=== PATIENT | female | born 1945 | race Two or more races ===

== ENCOUNTER 2019-01-30 22:40 | Inpatient (IN) | payer MEDICARE, OTHER ==
[~2019-01-30] VITALS: Ht 154.9 cm; Wt 84.5 kg
--- NOTE | 2019-01-30 23:37 | NUR ---
REPORT RECEIVED FROM RIANA ROCHA AT [facility] ER. ETA [phone]
--- NOTE | 2019-01-31 01:00 | NUR ---
RECEIVED PATIENT VIA GURNEY IN STABLE CONDITION. PATIENT AWAKE, A/OX4, AUSTRALIAN SPEAKING. NO C/O PAIN OR DISCOMFORT. NOTED WITH LEFT FOOT MULTIPLE ULCERS, UNABLE TO STAGE D/T NECTROTIC TISSUE. IV LINE IN RIGHT HAND #22 GAUGE INTACT AND PATENT. RUC PERMA CATH INTACT WITH NO BLEEDING, SWELLING, OR DRAINAGE NOTED AT INSERTION SITE. HEMODIALYSIS TTHS, LAST TX ON 01/29/19. ENCOURAGED USE OF CALL LIGHT FOR ASSISTANCE. ROOM FREE OF CLUTTER AND BELONGINGS KEPT NEAR BEDSIDE. BED ALARM ON AND FUNCTIONING PROPERLY. WILL CONTINUE TO MONITOR.
[2019-01-31] MEDS ORDERED: IV NS 0.9% 1,000 ML IV PRN (01:13)
[2019-01-31] MEDS ORDERED: DEXTROSE 50%-WATER 50 ML DISP.SYRIN IV PRN ×2 (01:30→09:30)
[2019-01-31] MEDS ORDERED: ACETAMINOPHEN 325 MG TABLET PO PRN (01:30)
[2019-01-31] MEDS ORDERED: MAGNESIUM HYDROXIDE 30 ML UDC PO PRN (01:30)
[2019-01-31] MEDS ORDERED: ONDANSETRON HCL/PF 4 MG/2 ML VIAL IVP PRN (01:30)
[2019-01-31] MEDS ORDERED: MORPHINE SULFATE INJ 2 MG/ML DISP.SYRIN IV PRN (01:30)
[2019-01-31] MEDS ORDERED: ZOLPIDEM TARTRATE 5 MG TABLET PO PRN (01:30)
[2019-01-31] MEDS ORDERED: Z GUARD REMEDY 2 OZ OINT TP PRN (01:30)
[2019-01-31] MEDS ORDERED: MAG HYDROX/AL HYDROX/SIMETH 30 ML UDC PO PRN (01:30)
[2019-01-31] MEDS ORDERED: VANCOMYCIN 1 GM in IV D5W 250ml IV ONE (02:00)
[2019-01-31 06:24] LABS: BASOPHILS # (AUTO) 0.1 /CMM (0.0-0.2); BASOPHILS % (AUTO) 0.4 % (0.0-2.0); EOSINOPHILS % (AUTO) 2.1 % (0.0-6.0); HEMATOCRIT 27 % (33-45); HEMOGLOBIN 8.7 g/dL (11.5-14.8); LYMPHOCYTES # (AUTO) 2.5 /CMM (0.8-4.8); LYMPHOCYTES % (AUTO) 16.1 % (20.0-44.0); MEAN CORPUSCULAR HGB CONC 32 g/dl (31.0-36.0); MEAN CORPUSCULAR VOLUME 93 fL (82-100); MONOCYTES # (AUTO) 1.4 /CMM (0.1-1.30); NEUTROPHILS # (AUTO) 11.3 /CMM (1.8-8.9); NEUTROPHILS % (AUTO) 72.4 % (43.0-81.0); PLATELET COUNT (AUTO) 290 /CMM (150-450); WHITE BLOOD COUNT (AUTO) 15.5 K/uL (4.3-11.0)
[2019-01-31 06:34] VITALS: BP 132/77
--- NOTE | 2019-01-31 06:35 | NUR ---
MS RN NOTES PATIENT ASLEEP IN BED WITH NO DISTRESS NOTED. CALL LIGHT WITHIN REACH. LEFT FOOT DRESSING REMAINS INTACT, CLEAN, AND DRY. PERIPHERAL LINE INTACT AND PATENT. NO C/O PAIN OR DISCOMFORT. BED IN LOW LOCK SETTING. ROOM FREE OF CLUTTER AND BELONGINGS KEPT NEAR BEDSIDE. WILL ENDORSE TO ONCOMING SHIFT.
[2019-01-31] MEDS: BLOOD SUGAR DIAGNOSTIC 1 EACH STRIP IN SCH ×4 (06:40→21:20)
[2019-01-31 06:52] LABS: CHOLESTEROL 68 mg/dL (<200); HDL CHOLESTEROL 33 mg/dL (40-60); LDL 25 mg/dL (0-99); THYROID STIMULATING HORMONE 1.601 uIU/mL (0.358-3.74); TRIGLYCERIDES 70 mg/dL (30-150)
[2019-01-31] MEDS ORDERED: FEE PK DOSING 1 MIN EA MC ONE (06:59)
[2019-01-31 07:02] LABS: ALANINE AMINOTRANSFERASE 12 U/L (12-78); ALKALINE PHOSPHATASE 105 U/L (46-116); ASPARTATE AMINOTRANSFERASE 16 U/L (15-37); BILIRUBIN,TOTAL 0.3 mg/dL (0.2-1.0); CALCIUM, SERUM 8.7 mg/dL (8.5-10.1); CARBON DIOXIDE 28 mmol/L (21-32); CHLORIDE 99 mmol/L (98-107); CREATININE 4.9 mg/dL (0.6-1.3); GLUCOSE 76 mg/dL (74-106); MAGNESIUM 1.8 mg/dL (1.8-2.4); PHOSPHORUS 4.3 mg/dL (2.5-4.9); POTASSIUM 4.3 mmol/L (3.5-5.1); SODIUM SERUM 135 mmol/L (136-145); TOTAL PROTEIN, SERUM 6.7 g/dL (6.4-8.2); UREA NITROGEN, BLOOD 30 mg/dL (7-18)
--- NOTE | 2019-01-31 07:02 | NUR ---
0200 X1 VANCO DOSE HELD D/T INITIAL DOSE (VANCO 1GM) GIVEN AT [facility] @ 1999. CHARGE NURSE MADE AWARE.
[2019-01-31] MEDS ORDERED: ATOR80TA PO (07:36)
[2019-01-31] MEDS ORDERED: FURO-144 PO (07:36)
[2019-01-31] MEDS ORDERED: INSU100I4 SQ (07:36)
[2019-01-31] MEDS ORDERED: OMEP20CA11 PO (07:36)
[2019-01-31] MEDS ORDERED: SPIR25TA6 PO (07:36)
[2019-01-31] MEDS ORDERED: INSU100V7 SQ (07:36)
[2019-01-31] MEDS ORDERED: ASPI-1152 PO (07:36)
[2019-01-31] MEDS ORDERED: HYDR-4075 PO (07:36)
[2019-01-31] MEDS ORDERED: CARV25TA2 PO (07:36)
[2019-01-31] MEDS ORDERED: BUME2TAB7 PO (07:36)
--- NOTE | 2019-01-31 07:36 | NUR ---
MS RN OPENING NOTE PATIENT IN BED RESTING COMFORTABLY. PATIENT IN NO ACUTE DISTRESS. NO SOB NOTED. PATIENT BREATHING IS EVEN AND UNLABORED. PATIENT IN NO PAIN AT THIS TIME. PATIENT SAFETY PRECAUTIONS IN PLACE. PATIENT BED IS LOCKED AND IN LOWEST POSITION. CALL LIGHT WITHIN REACH. WILL CONTINUE TO MONITOR.
[2019-01-31] MEDS: PANTOPRAZOLE 40 MG TABLET.DR PO SCH (07:56)
[2019-01-31 08:00] VITALS: BP 118/62
[2019-01-31] MEDS ORDERED: VANCOMYCIN 500 MG in IV D5W 100 ML IV PRN (08:30)
[2019-01-31] MEDS ORDERED: INSULIN REGULAR, HUMAN 100 UNIT/ML 3 ML VIAL SQ PRN (09:30)
[2019-01-31] MEDS ORDERED: *INSULIN REGULAR(HUMULIN R)HUM 100 UNIT/ML VIAL SQ PRN (09:30)
[2019-01-31] MEDS: BUMETANIDE (1 MG) 1 MG TABLET PO SCH ×2 (10:01→16:35)
--- NOTE | 2019-01-31 11:02 | NUR ---
MS RN NOTE DR. BENITES NOTIFIED AND INFORMED OF MRI RESULTS FROM [facility]. PODIATRY CONSULT ORDERED. DR. BENITES NOTIFIED NO PODIATRY AVAILABLE FOR WEEKEND.
[2019-01-31 11:40] LABS: APPEARANCE,URINE CLOUDY (CLEAR); BILIRUBIN,URINE NEGATIVE (NEGATIVE); BLOOD, URINE TRACE-INTA Ery/uL (NEGATIVE); COLOR,URINE DARK YELLO (YELLOW); KETONES,URINE NEGATIVE (NEGATIVE); LEUKOCYTE ESTERASE ,URINE TRACE (NEGATIVE); NITRITE, URINE NEGATIVE (NEGATIVE); PROTEIN,URINE 100 mg/dl (NEGATIVE); UGLUCOSE NEGATIVE (NEGATIVE); UROBILINOGEN,URINE 0.2 EU/dL (0.2)
[2019-01-31] MEDS ORDERED: BLOOD SUGAR DIAGNOSTIC 1 EACH STRIP VI SCH (12:00)
[2019-01-31] MEDS: INSULIN REGULAR, HUMAN 100 UNIT/ML 3 ML VIAL SQ PRN ×3 (12:11→21:22)
[2019-01-31 12:29] LABS: BACTERIA,URINE Many /HPF (None Seen); SQUAMOUS EPITHELIAL CELL,UR Moderate /HPF (None Seen)
[2019-01-31 16:12] VITALS: BP 147/73
[2019-01-31] MEDS ORDERED: INSULIN GLARGINE, 100 UNIT/ML CARTRIDGE SQ SCH (17:00)
[2019-01-31] MEDS ORDERED: CARVEDILOL 25 MG TABLET PO SCH (17:00)
--- NOTE | 2019-01-31 17:06 | NUR ---
MS RN NOTE DR. BENITES INFORMED OF 100 UNITS OF LANTUS SCHEDULED AT 1700. INFORMED DR. BENITES OF PATIENT BLOOD SUGAR THROUGHOUT DAY, WITH CURRENT BLOOD SUGAR AT 228 WITH 4 UNITS OF FAST ACTING INSULIN GIVEN. PER DR. BENITES ORDERS TO REDOSE LANTUS TO 50 UNITS. WILL FOLLOW UP WITH DOSE ORDER. WILL CONTINUE TO MONITOR
[2019-01-31] MEDS: INSULIN GLARGINE, 100 UNIT/ML CARTRIDGE SQ SCH (18:07)
--- NOTE | 2019-01-31 18:51 | NUR ---
MS RN CLOSING NOTE PATIENT IN BED RESTING COMFORTABLY. PATIENT BREATHING IS EVEN AND UNLABORED. PATIENT IN NO ACUTE DISTRESS. NO SOB NOTED. NOTIFIED [employer], MARTELL RUIZ TWICE ABOUT DIALYSIS SCHEDULING. NO RESPONSE. WILL ENDORSE TO VENDING MANAGER TO FOLLOW UP. PATIENT SON AT THE BEDSIDE. PATIENT EXTREMITIES OFFLOADED ON PILLOWS. PATIENT KEPT CLEAN, DRY, AND COMFORTABLY THROUGHOUT SHIFT. NEEDS AND CONCERNS ADDRESSED. PATIENT BED IS LOCKED AND IN LOWEST CONDITION. CALL LIGHT WITHIN REACH. WILL ENDORSE CARE TO PM SHIFT FOR GONZALO.
--- NOTE | 2019-01-31 19:10 | NUR ---
MS RN OPENING NOTES RECEIVED PATIENT IN BED WATCHING TV, ALERT, ORIENTED X 4, OMANI SPEAKING. SON AT BEDSIDE. BREATHING EVEN AND UNLABORED. NOT IN ANY DISTRESS. ON ROOM AIR. NO COMPLAINTS AT THIS TIME. SAFETY MEASURES IN PLACE. CALL LIGHT WITHIN REACH. BED IN LOW, LOCKED POSITION. ENCOURAGED TO CALL FOR ASSISTANCE. WILL CONTINUE TO MONITOR ACCORDINGLY
[2019-01-31 20:00] VITALS: BP 175/75
[2019-01-31] MEDS: ATORVASTATIN 10 MG TABLET PO SCH (21:14)
[2019-01-31] MEDS: CARVEDILOL 12.5 MG TABLET PO SCH (21:15)
--- NOTE | 2019-01-31 21:22 | NUR ---
RN NOTES BSL CHECKED- 177MG/DL. 3 UNITS INSULIN COVERAGE GIVEN PER SLIDING SCALE. SNACKS PROVIDED
[2019-01-31] MEDS ORDERED: MEROPENEM 500 MG VIAL IV ONE ×2 (23:16→23:33)
[2019-01-31] MEDS: MEROPENEM 500 MG in IV NS 0.9% 50 ML IV SCH (23:21)
[2019-02-01 06:27] LABS: BASOPHILS % (AUTO) 0.3 % (0.0-2.0); CALCIUM, SERUM 8.4 mg/dL (8.5-10.1); CARBON DIOXIDE 30 mmol/L (21-32); CHLORIDE 97 mmol/L (98-107); CREATININE 5.5 mg/dL (0.6-1.3); EOSINOPHILS % (AUTO) 2.1 % (0.0-6.0); GLUCOSE 178 mg/dL (74-106); HEMATOCRIT 26 % (33-45); HEMOGLOBIN 8.8 g/dL (11.5-14.8); LYMPHOCYTES # (AUTO) 2.7 /CMM (0.8-4.8); LYMPHOCYTES % (AUTO) 17.8 % (20.0-44.0); MEAN CORPUSCULAR HGB CONC 33 g/dl (31.0-36.0); MEAN CORPUSCULAR VOLUME 92 fL (82-100); MONOCYTES # (AUTO) 1.4 /CMM (0.1-1.30); MONOCYTES % (AUTO) 9.1 % (2.0-12.0); NEUTROPHILS # (AUTO) 10.7 /CMM (1.8-8.9); NEUTROPHILS % (AUTO) 70.7 % (43.0-81.0); PLATELET COUNT (AUTO) 302 /CMM (150-450); RED BLOOD CELL COUNT(AUTO) 2.85 MIL/uL (4.0-5.2); SODIUM SERUM 134 mmol/L (136-145); UREA NITROGEN, BLOOD 40 mg/dL (7-18); WHITE BLOOD COUNT (AUTO) 15.1 K/uL (4.3-11.0)
[2019-02-01] MEDS: INSULIN REGULAR, HUMAN 100 UNIT/ML 3 ML VIAL SQ PRN ×4 (06:45→21:04)
[2019-02-01] MEDS: BLOOD SUGAR DIAGNOSTIC 1 EACH STRIP IN SCH ×4 (06:45→21:01)
--- NOTE | 2019-02-01 07:03 | NUR ---
MS RN CLOSING NOTE PATIENT IN BED RESTING COMFORTABLY. PATIENT BREATHING IS EVEN AND UNLABORED. PATIENT IN NO ACUTE DISTRESS. NO SOB NOTED. BSL CHECKED- 157MG/DL- 2 UNITS INSULIN GIVEN PER SLIDING SCALE. PATIENT KEPT CLEAN, DRY, AND COMFORTABLY THROUGHOUT SHIFT. NEEDS AND CONCERNS ATTENDED. PATIENT BED IS LOCKED AND IN LOWEST CONDITION. CALL LIGHT WITHIN REACH. WILL ENDORSE CONTINUITY OF CARE TO AM SHIFT
--- NOTE | 2019-02-01 07:35 | NUR ---
MS RN OPENING NOTE PATIENT IN BED RESTING COMFORTABLY. PATIENT IN NO ACUTE DISTRESS. NO SOB NOTED. PATIENT BREATHING IS EVEN AND UNLABORED. PATIENT IN NO PAIN AT THIS TIME. BED ALARM IS ON. PATIENT SAFETY PRECAUTIONS IN PLACE. PATIENT BED IS LOCKED AND IN LOWEST POSITION. CALL LIGHT WITHIN REACH. WILL CONTINUE TO MONITOR.
[2019-02-01 08:00] VITALS: BP 153/83
[2019-02-01] MEDS: PANTOPRAZOLE 40 MG TABLET.DR PO SCH (08:46)
[2019-02-01] MEDS: INSULIN GLARGINE, 100 UNIT/ML CARTRIDGE SQ SCH ×2 (08:58→17:22)
[2019-02-01] MEDS: ASPIRIN EC 81 MG TABLET.DR PO SCH (09:00)
[2019-02-01] MEDS: BUMETANIDE (1 MG) 1 MG TABLET PO SCH ×2 (09:00→17:14)
[2019-02-01] MEDS: hydrALAZINE HCL 10 MG TABLET PO SCH (09:00)
[2019-02-01] MEDS ORDERED: OMEPRAZOLE 20 MG CAPSULE.DR PO SCH (09:00)
[2019-02-01] MEDS: SPIRONOLACTONE 25 MG TABLET PO SCH (09:01)
[2019-02-01] MEDS: CARVEDILOL 12.5 MG TABLET PO SCH ×2 (09:01→21:00)
[2019-02-01] MEDS: MEROPENEM 500 MG in IV NS 0.9% 50 ML IV SCH ×2 (10:31→21:42)
--- NOTE | 2019-02-01 11:36 | NUR ---
MS RN NOTE PER DR. MARTELL RUIZ CHANGE DIET TO RENAL DIET.
--- NOTE | 2019-02-01 11:45 | NUR ---
MS RN NOTE SEEN AND EVALUATED BY DR. MARTELL RUIZ. SPOKE WITH MD, PER MD PATIENT SCHEDULED TO HAVE HEMODIALYSIS LATE AFTERNOON TO EVENING. CONSENT SIGNED AND IN CHART.
[2019-02-01] MEDS ORDERED: EPOETIN ALFA (10,000 UNIT) 10,000 UNIT/ML VIAL SQ ONE (15:00)
[2019-02-01 16:00] VITALS: BP 161/81
--- NOTE | 2019-02-01 16:58 | NUR ---
RN NOTES ORDERS TO GET RECORDS FROM [facility] FOR MICROBIOLOGY RESULT FROM BLOOD/URINE ON 01/30. MEDICAL RECORDS CLOSED AT THIS TIME. WILL ENDORSE TO OBTAIN ONCE OFFICES ARE OPEN. Addendum: 02/01/19 at 1701 by RAJENDRA GRACE RN RN NOTES ORDERS TO GET RECORDS FROM [facility] FOR MICROBIOLOGY RESULT FROM BLOOD/URINE ON 01/30. MEDICAL RECORDS CLOSED AT THIS TIME. WILL ENDORSE TO NEXT SHIFT RN TO OBTAIN ONCE OFFICES ARE OPEN.
[2019-02-01] MEDS: LACTOBACILLUS RHAMNOSUS GG 1 EACH CAP.SPRINK PO SCH (17:14)
--- NOTE | 2019-02-01 18:22 | NUR ---
MS RN CLOSING NOTE PATIENT IN BED RESTING COMFORTABLY. PATIENT BREATHING IS EVEN AND UNLABORED. PATIENT IN NO ACUTE DISTRESS. NO SOB NOTED. PATIENT CURRENTLY RECEIVING HEMODIALYSIS AT THIS TIME. PATIENT SON AT THE BEDSIDE. PATIENT EXTREMITIES OFFLOADED ON PILLOWS. PATIENT KEPT CLEAN, DRY, AND COMFORTABLE THROUGHOUT SHIFT. NEEDS AND CONCERNS ADDRESSED. PATIENT BED IS LOCKED AND IN LOWEST CONDITION. CALL LIGHT WITHIN REACH. WILL ENDORSE CARE TO PM SHIFT FOR GONZALO.
--- NOTE | 2019-02-01 19:15 | NUR ---
RN NOTES-ASSESSMENT: RECEIVED REPORT FROM RAJENDRA MAYERS. PT IN BED, ONGOING HD STARTED AT 1720PM. PT IS A/O X3 BENGALI SPEAKING ONLY, ON RA RESPIRATIONS EVEN AND UNLABORED. RCW PERMACATH IN PLACED, DRESSING C/D/I. HD RN AT BED SIDE. RANDOM VANCO DRAWN, RESULT IS 16. BED SIDE COMMODE AVAILABLE. PT NEEDS ASSISTANCE IN AMBULATING D/T PRESENCE OF WOUND ON LLE. DRESSING ON FOOT C/D/I. NO ACTIVE BLEEDING NOTED. BLE OFFLOADED ON PILLOWS. DISCUSSED PLAN OF CARE TO PT. SAFETY PRECAUTIONS FOR FALL INITIATED, CALL LIGHT IN REACH, WILL CONTINUE MONITORING PT.
[2019-02-01 20:00] VITALS: BP 129/62
[2019-02-01] MEDS ORDERED: VANCOMYCIN 0.75 GM in IV D5W 250 ML IV SCH (20:00)
[2019-02-01 20:10] VITALS: BP 129/62
--- NOTE | 2019-02-01 20:42 | NUR ---
RN NOTES: COMPLETED HD-HD RN KORY, 2000 ML WAS REMOVED. DOUBLE CHECK RANDOM VANCO LEVEL, FOUND OUT THAT RANDOM VANCO WAS NOT COLLECTED TODAY, VANCO TROUGH WAS DONE YESTERDAY DATED 01/31/19 RESULT IS 16, BUT NO RANDOM LEVEL FOR TODAY. SPOKED WITH KORY STATED SHE DID ASK THE DAY [facility] ABOUT IT, BUT STATED ITS NOT NEEDED. CONTACTED PHARMACIST CHAINSTITCH HEMMER-SPOKED WITH BEATRIZ, RELAYED SITUATION, PER BEATRIZ TO DO RANDOM VANCO LEVEL NOW, THEN IF RESULT IS BELOW 20, THEN GIVE THE VANCOMYCIN 500MG IV ATB.
--- NOTE | 2019-02-01 20:48 | NUR ---
RN NOTES: LAB ON HIS WAY TO DRAW RANDOM ANKIT
[2019-02-01 20:53] VITALS: BP 112/44
[2019-02-01] MEDS: ATORVASTATIN 10 MG TABLET PO SCH (21:01)
--- NOTE | 2019-02-01 21:09 | NUR ---
rn notes: lab came to draw blood for vanco random level
--- NOTE | 2019-02-01 21:25 | NUR ---
rn notes: still awaiting for result of vanco random level
--- NOTE | 2019-02-01 22:31 | NUR ---
RN NOTES-VANCOMYCIN POST HD: VANCO RANDOM LEVEL RESULT IS 10. PER CIVIL ENGINEERING PROFESSOR PHARM NAGI TO ADMINISTER VANCO POST HD. (JUST COMPLETED/FINISHED IV MERREM0
--- NOTE | 2019-02-02 04:09 | NUR ---
MS RN NOTES RECEIVED PATIENT IN BED RESTING ALERT, ORIENTED X4. GREEK SPEAKING. BREATHING EVEN AND UNLABORED, DENIES ANY PAIN OR DISCOMFORT. SAFETY MEASURES IN PLACE, ASPIRATION PRECAUTION EMPHASIZED, PERIPHERAL IV INTACT PATIENT. BED IN LOW LOCKED POSITION. CALL LIGHT WITHIN REACH. SON AT BEDSIDE AT THIS TIME. WILL CONTINUE TO MONITOR ACCORDINGLY.
[2019-02-02] MEDS: BLOOD SUGAR DIAGNOSTIC 1 EACH STRIP IN SCH ×4 (06:39→22:06)
[2019-02-02] MEDS: INSULIN REGULAR, HUMAN 100 UNIT/ML 3 ML VIAL SQ PRN ×4 (06:41→22:10)
--- NOTE | 2019-02-02 06:59 | NUR ---
END OF SHIFT SUMMARY: PT LLE REMAINS OFFLOADED ON PILLOWS. DRESSING C/D/I, NO ACTIVE BLEEDING NOTED. ORTHO SHOES (LEFT FOOT) AT BED SIDE. AWAITING FOR PODIATRY CONSULT. IV ACCESS REMAINS PATENT AND FLUSHING WELL, ON HL, FREE FROM S/S OF INFILTRATION. RUCW PERMACATH REMAINS IN PLACED, DRESSING C/D/I, NO ACTIVE BLEEDING NOTED. BLOOD GLUCOSE AT 2200 WAS 193, COVERED WITH 3UNITS OF INSULIN PER SLIDING SCALE. BLOOD GLUCOSE FOR 0630AM WAS 134, COVERED WITH 2UNIT OF INSULIN PER SS. PT ABLE TO TRANSFER HERSELF FROM BED TO BS COMMODE, WITH ASSISTANCE, FWW AVAILABLE AT BED SIDE. VS REMAINS STABLE, NEEDS ATTENDED. SAFETY PRECAUTIONS FOR FALL REMAINS ENGAGED, CALL LIGHT IN REACH, WILL ENDORSE TO DAY RN FOR CONTINUITY OF CARE.
[2019-02-02 07:30] VITALS: BP 126/77
--- NOTE | 2019-02-02 08:00 | NUR ---
MS RN NOTES PATIENT IN BED RESTING ALERT, ORIENTED X4. KYRGYZ SPEAKING. PERIPHERAL IV INTACT PATIENT. BED IN LOW LOCKED POSITION. CALL LIGHT WITHIN REACH. WILL CONTINUE TO MONITOR.
[2019-02-02] MEDS: LACTOBACILLUS RHAMNOSUS GG 1 EACH CAP.SPRINK PO SCH ×2 (08:50→17:08)
[2019-02-02] MEDS: ASPIRIN EC 81 MG TABLET.DR PO SCH (08:51)
[2019-02-02] MEDS: BUMETANIDE (1 MG) 1 MG TABLET PO SCH ×2 (08:51→17:08)
[2019-02-02] MEDS: CARVEDILOL 12.5 MG TABLET PO SCH ×2 (08:51→21:11)
[2019-02-02] MEDS: PANTOPRAZOLE 40 MG TABLET.DR PO SCH (08:51)
[2019-02-02] MEDS: SPIRONOLACTONE 25 MG TABLET PO SCH (08:51)
[2019-02-02] MEDS: hydrALAZINE HCL 10 MG TABLET PO SCH (08:52)
[2019-02-02] MEDS: INSULIN GLARGINE, 100 UNIT/ML CARTRIDGE SQ SCH ×2 (09:04→17:04)
[2019-02-02] MEDS: MEROPENEM 500 MG in IV NS 0.9% 50 ML IV SCH ×2 (11:09→22:48)
--- NOTE | 2019-02-02 15:30 | NUR ---
MS RN NOTES PATIENT HAD I AND D WITH DR. GRUBBS PATIENT TOLERATED WELL ORDERS FOR POST XRAY OF THE LEFT FOOT. ORDERS NOTED AND CARRIED OUT.
[2019-02-02] MEDS: HYDROCODONE/APAP 5/325MG 1 EACH TABLET PO PRN (15:41)
[2019-02-02 16:00] VITALS: BP 159/81
--- NOTE | 2019-02-02 18:16 | NUR ---
MS RN NOTES PATIENT IN BED ALERT, ORIENTED X4. MONGOLIAN SPEAKING SON AT BEDSIDE. ALL DUE MEDICATIONS ADMINISTERED. ALL NEEDS MET. NO ACUTE CHANGES NOTED DURING SHIFT. WILL CONTINUE TO MONITOR.
--- NOTE | 2019-02-02 19:45 | NUR ---
MS RN NOTES RECEIVED PATIENT IN BED RESTING ALERT, ORIENTED X4. TELUGU SPEAKING. BREATHING EVEN AND UNLABORED, DENIES ANY PAIN OR DISCOMFORT. SAFETY MEASURES IN PLACE, ASPIRATION PRECAUTION EMPHASIZED, PERIPHERAL IV INTACT PATIENT. BED IN LOW LOCKED POSITION. CALL LIGHT WITHIN REACH. SON AT BEDSIDE AT THIS TIME. WILL CONTINUE TO MONITOR ACCORDINGLY.
[2019-02-02 20:53] VITALS: BP 125/62
[2019-02-02] MEDS: ATORVASTATIN 10 MG TABLET PO SCH (22:15)
[2019-02-03 06:47] LABS: BASOPHILS # (AUTO) 0.1 /CMM (0.0-0.2); BASOPHILS % (AUTO) 0.6 % (0.0-2.0); EOSINOPHILS % (AUTO) 2.2 % (0.0-6.0); HEMATOCRIT 28 % (33-45); LYMPHOCYTES # (AUTO) 2.2 /CMM (0.8-4.8); MEAN CORPUSCULAR HGB CONC 33 g/dl (31.0-36.0); MEAN CORPUSCULAR VOLUME 93 fL (82-100); MONOCYTES # (AUTO) 1.3 /CMM (0.1-1.30); MONOCYTES % (AUTO) 9.1 % (2.0-12.0); NEUTROPHILS # (AUTO) 10.6 /CMM (1.8-8.9); NEUTROPHILS % (AUTO) 73.1 % (43.0-81.0); PLATELET COUNT (AUTO) 338 /CMM (150-450); RED BLOOD CELL COUNT(AUTO) 2.98 MIL/uL (4.0-5.2); WHITE BLOOD COUNT (AUTO) 14.5 K/uL (4.3-11.0)
--- NOTE | 2019-02-03 07:04 | NUR ---
MS RN NOTES ALL NEEDS ATTENDED AND MET, ABLE TO REST AND SLEPT AT INTERVALS, PATIENT IN BED RESTING ALERT, ORIENTED X4. SAMI SPEAKING. BREATHING EVEN AND UNLABORED, DENIES ANY PAIN OR DISCOMFORT. SAFETY MEASURES IN PLACE, ASPIRATION PRECAUTION EMPHASIZED, PERIPHERAL IV INTACT PATIENT. WOUND DRESSING CHANGE DONE.BED IN LOW LOCKED POSITION. CALL LIGHT WITHIN REACH. SON AT BEDSIDE AT THIS TIME. ENDORSED TO AM NURSE FOR CONTINUITY OF CARE.
[2019-02-03 07:14] LABS: CALCIUM, SERUM 8.5 mg/dL (8.5-10.1); CARBON DIOXIDE 29 mmol/L (21-32); CHLORIDE 95 mmol/L (98-107); CREATININE 6.3 mg/dL (0.6-1.3); GLUCOSE 101 mg/dL (74-106); SODIUM SERUM 132 mmol/L (136-145); UREA NITROGEN, BLOOD 39 mg/dL (7-18); VANCOMYCIN,TROUGH 14 ug/ml (12-20)
--- NOTE | 2019-02-03 07:15 | NUR ---
MS/RN - Assessment Patient is awake, A/O x 4, Armenian speaking, denies pain, stable on room air. Saline lock on the right hand is patent, intact, with no signs of infiltration. Patient s/p I&D on the left foot, will do wound treatment as ordered, continue non-weight bearing on the left foot. Labs reviewed, no critical results seen. Patient scheduled for HD treatment today, vancomycin level 14, will administer dose post HD. All needs attended. Fall precautions maintained. Will continue with current medical management.
[2019-02-03] MEDS: BLOOD SUGAR DIAGNOSTIC 1 EACH STRIP IN SCH ×4 (07:21→21:27)
[2019-02-03] MEDS: PANTOPRAZOLE 40 MG TABLET.DR PO SCH (07:32)
[2019-02-03 08:00] VITALS: BP 139/71
[2019-02-03] MEDS: LACTOBACILLUS RHAMNOSUS GG 1 EACH CAP.SPRINK PO SCH ×2 (08:16→16:31)
[2019-02-03] MEDS: CARVEDILOL 12.5 MG TABLET PO SCH ×2 (08:16→21:27)
[2019-02-03] MEDS: BUMETANIDE (1 MG) 1 MG TABLET PO SCH ×2 (08:16→16:31)
[2019-02-03] MEDS: ASPIRIN EC 81 MG TABLET.DR PO SCH (08:16)
[2019-02-03] MEDS: SPIRONOLACTONE 25 MG TABLET PO SCH (08:16)
[2019-02-03] MEDS: hydrALAZINE HCL 10 MG TABLET PO SCH (08:17)
--- NOTE | 2019-02-03 08:53 | NUR ---
WOUND CARE CONSULT: PT FOLLOWED BY PODIATRY FOR WOUND CARE. DEFER TO DPM FOR WOUND TREATMENT PLAN. WILL SEE PRN. CURRENT MILENA SCORE IS 17.
[2019-02-03] MEDS: INSULIN GLARGINE, 100 UNIT/ML CARTRIDGE SQ SCH ×2 (09:02→17:00)
--- NOTE | 2019-02-03 10:50 | NUR ---
MS/RN - MRSA wound Patient positive for MRSA of left foot wound, contact isolation initiated, teachings given.
[2019-02-03] MEDS: INSULIN REGULAR, HUMAN 100 UNIT/ML 3 ML VIAL SQ PRN ×3 (11:56→21:38)
[2019-02-03] MEDS ORDERED: LIDOCAINE 1% INJ 50 ML MDV IJ ONE (14:00)
--- NOTE | 2019-02-03 14:00 | NUR ---
MS/RN - Procedure Dr. Quach performed left foot incision and drainage with excisional wound debridement today. Patient tolerated procedure well.
[2019-02-03 16:00] VITALS: BP 116/59
[2019-02-03] MEDS ORDERED: VANCOMYCIN 1 GM in IV D5W 250 ML IV ONE (16:00)
--- NOTE | 2019-02-03 18:00 | NUR ---
MS/RN - End of shift assessment No significant change in condition seen, remain afebrile, HD treatment ongoing, will endorse to night RN to resume Vancomycin 1 Gm IVPB dose post HD. All needs attended and met. Will continue with current medical management.
--- NOTE | 2019-02-03 19:30 | NUR ---
rn notes/assessment: pt in bed, awake, a/o x4, ongoing hd. pt s/p 2nd serial debridement today with dr busch. dressing on left foot c/d/i, no active bleeding noted, elevated on pillows. pt now isolation mrsa wound. ppe utilized. per day rn pt vancomycin 1gm needs to be resume/infuse after dialysis. met with pt and pt's son at bed side. discussed plan of care. safety precautions for fall initiated, call light in reach, will continue monitoring pt.
--- NOTE | 2019-02-03 19:50 | NUR ---
rn notes: hd completed 1500ml removed.
--- NOTE | 2019-02-03 19:59 | NUR ---
RN NOTES: ONGOING VANCOMYCIN AT 250ML/HR.
[2019-02-03 20:00] VITALS: BP 139/73
[2019-02-03] MEDS ORDERED: MEROPENEM 500 MG in IV NS 0.9% 50 ML IV SCH (20:00)
[2019-02-03 20:21] VITALS: BP 139/73
[2019-02-03 21:15] VITALS: BP 146/64
[2019-02-03] MEDS: ATORVASTATIN 10 MG TABLET PO SCH (21:27)
--- NOTE | 2019-02-04 06:11 | NUR ---
RN CLOSING NOTES: PT DRESSING ON LLE REMAINS C/D/I, NO ACTIVE BLEEDING NOTED. LEG OFFLOADED ON PILLOWS. IV ACCESS REMAINS PATENT AND FLUSHING WELL, ON HL. RIGHT CW PERMACATH REMAINS IN PLACED, DRESSING C/D/I. PT DENIES ANY PAIN OR DISCOMFORT THROUGHOUT THE SHIFT. VS REMAINS STABLE, NEEDS ATTENDED. SAFETY PRECAUTIONS FOR FALL REMAINS ENGAGED, CALL LIGHT IN REACH. ENDORSED TO ANJEL MAYERS FOR CONTINUITY OF CARE.
[2019-02-04] MEDS: BLOOD SUGAR DIAGNOSTIC 1 EACH STRIP IN SCH ×4 (06:24→21:45)
[2019-02-04] MEDS: PANTOPRAZOLE 40 MG TABLET.DR PO SCH (07:32)
--- NOTE | 2019-02-04 07:34 | NUR ---
MS/RN - Assessment Patient is awake, A/O x 4, no complaints overnight, afebrile, denies pain, stable on room air. Saline lock on the right hand is patent, intact, with no signs of infiltration. Patient had serial debridement on the left foot, will do wound treatment as ordered, continue non-weight bearing on the left foot. All needs attended. Fall precautions maintained. Contact isolation observed for MRSA wound. Will continue with current medical management.
[2019-02-04 07:51] LABS: CALCIUM, SERUM 8.2 mg/dL (8.5-10.1); CARBON DIOXIDE 28 mmol/L (21-32); CHLORIDE 95 mmol/L (98-107); CREATININE 5.1 mg/dL (0.6-1.3); GLUCOSE 71 mg/dL (74-106); POTASSIUM 4.8 mmol/L (3.5-5.1); SODIUM SERUM 131 mmol/L (136-145); UREA NITROGEN, BLOOD 29 mg/dL (7-18)
[2019-02-04 08:00] VITALS: BP 141/65
[2019-02-04] MEDS: SPIRONOLACTONE 25 MG TABLET PO SCH (08:20)
[2019-02-04] MEDS: BUMETANIDE (1 MG) 1 MG TABLET PO SCH ×2 (08:20→16:20)
[2019-02-04] MEDS: ASPIRIN EC 81 MG TABLET.DR PO SCH (08:20)
[2019-02-04] MEDS: LACTOBACILLUS RHAMNOSUS GG 1 EACH CAP.SPRINK PO SCH ×2 (08:20→16:21)
[2019-02-04] MEDS: INSULIN GLARGINE, 100 UNIT/ML CARTRIDGE SQ SCH ×2 (08:21→16:42)
[2019-02-04] MEDS: CARVEDILOL 12.5 MG TABLET PO SCH ×2 (08:21→21:31)
[2019-02-04] MEDS: hydrALAZINE HCL 10 MG TABLET PO SCH (08:21)
[2019-02-04 10:55] LABS: BASOPHILS # (AUTO) 0.1 /CMM (0.0-0.2); BASOPHILS % (AUTO) 0.4 % (0.0-2.0); EOSINOPHILS % (AUTO) 2.5 % (0.0-6.0); HEMATOCRIT 26 % (33-45); HEMOGLOBIN 8.5 g/dL (11.5-14.8); LYMPHOCYTES # (AUTO) 2.3 /CMM (0.8-4.8); LYMPHOCYTES % (AUTO) 16.8 % (20.0-44.0); MEAN CORPUSCULAR HGB CONC 33 g/dl (31.0-36.0); MEAN CORPUSCULAR VOLUME 93 fL (82-100); MONOCYTES # (AUTO) 1.3 /CMM (0.1-1.30); MONOCYTES % (AUTO) 9.4 % (2.0-12.0); NEUTROPHILS # (AUTO) 9.5 /CMM (1.8-8.9); NEUTROPHILS % (AUTO) 70.9 % (43.0-81.0); PLATELET COUNT (AUTO) 317 /CMM (150-450); RED BLOOD CELL COUNT(AUTO) 2.82 MIL/uL (4.0-5.2); WHITE BLOOD COUNT (AUTO) 13.4 K/uL (4.3-11.0)
--- NOTE | 2019-02-04 11:30 | NUR ---
MS/RN - ID Rounds Seen and examined by Dr. Chao with recommendations to continue vancomycin (01/30/2019-) x 6 weeks; ok after hd and Levaquin/Flagyl PO x 6 weeks. No PICC line needed.
[2019-02-04] MEDS: METRONIDAZOLE 500 MG TABLET PO SCH ×2 (12:17→21:31)
[2019-02-04] MEDS: LEVOFLOXACIN (500MG) 500 MG TABLET PO SCH (12:17)
--- NOTE | 2019-02-04 12:45 | NUR ---
MS/RN - Apartment Maintenance Supervisor Rounds Seen and examined by Dr. Galvan, wound treatment done on the left foot.
--- NOTE | 2019-02-04 13:45 | NUR ---
MS/RN - Notes Called Dr. 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 Follow up call was made in behalf of Dr. Philomena Galvan (warehouse specialist).
[2019-02-04] MEDS ORDERED: VANCOMYCIN 500 MG in IV D5W 100 ML IV PRN (15:00)
[2019-02-04 16:00] VITALS: BP 136/69
[2019-02-04] MEDS: INSULIN REGULAR, HUMAN 100 UNIT/ML 3 ML VIAL SQ PRN ×2 (16:44→21:47)
--- NOTE | 2019-02-04 17:00 | NUR ---
MS/RN - Vascular consult Seen and examined by Dr. Harry with order for LLE arterial doppler, ok to proceed with debridement from vascular standpoint to remove slough. Per Dr. Harry, patient will likely require angiogram in near future. manager sharepoint made aware of vascular plan.
--- NOTE | 2019-02-04 18:43 | NUR ---
MS/RN - End of shift assessment No significant change in condition seen, remain afebrile, denies pain, not in any form of distress. All needs attended and met. Will continue with current medical management.
--- NOTE | 2019-02-04 19:00 | NUR ---
RN MS OPENING NOTES RECEIVED PATIENT IN BED AWAKE ALERT AND ORIENTED X4, RESPIRATIONS EVEN AND UNLABORED WITH EQUAL RISE AND FALL OF CHEST, DENIES ANY PAIN OR DISCOMFORT AT THIS TIME, RIGHT CHEST WALL HD SITE DRESSING REMAINS CLEAN DRY AND INTACT, RIGHT WRIST IV SITE INTACT AND PATENT, NO REDNESS NO INFILTRATION, LLE DRESSING REMAINS C/D/I. ORIENTED TO STAFF AND CALL LIGHT AND KEPT WITHIN REACH, DISCUSSED PLAN OF CARE, ALL NEEDS ATTENDED AT THIS TIME, WILL CONTINUE TO MONITOR AND ATTEND TO NEEDS,SAFETY PRECAUTIONS IN PLACE, LOW BED AND LOCKED.
[2019-02-04 20:00] VITALS: BP 138/62
[2019-02-04] MEDS: ATORVASTATIN 10 MG TABLET PO SCH (21:31)
[2019-02-05] MEDS: METRONIDAZOLE 500 MG TABLET PO SCH ×3 (05:49→22:28)
[2019-02-05] MEDS: BLOOD SUGAR DIAGNOSTIC 1 EACH STRIP IN SCH ×4 (06:01→22:29)
[2019-02-05] MEDS: INSULIN REGULAR, HUMAN 100 UNIT/ML 3 ML VIAL SQ PRN ×3 (06:01→22:39)
--- NOTE | 2019-02-05 06:16 | NUR ---
RN MS CLOSING NOTES PATIENT IN BED AWAKE ALERT AND ORIENTED X4, RESPIRATIONS EVEN AND UNLABORED WITH EQUAL RISE AND FALL OF CHEST, DENIES ANY PAIN OR DISCOMFORT AT THIS TIME, RIGHT CHEST WALL HD SITE DRESSING REMAINS CLEAN DRY AND INTACT, RIGHT WRIST IV SITE INTACT AND PATENT, NO REDNESS NO INFILTRATION, LLE DRESSING REMAINS CHANGED PROVIDED WOUND CARE ORDERED, TOLERATED WELL, DENIES PAIN, BLE ELEVATED FLOATED, CALL LIGHT KEPT WITHIN REACH,PERINEAL CARE PROVIDED SKIN TO SACRAL REMAINS INTACT, ALL NEEDS ATTENDED AT THIS TIME, WILL CONTINUE TO MONITOR AND ATTEND TO NEEDS,SAFETY PRECAUTIONS IN PLACE, LOW BED AND LOCKED ALL DUE MEDS GIVEN WITH NO ADVERSE REACTIONS, WILL CONTINUE CARE AND ENDORSE TO NEXT SHIFT. HOSPITALIST MADE AWARE OF BLE ARTERIAL ULTRASOUND RESULTS WITH NO NEW ORDERS AT THIS TIME, AM PRIMARY MD TO F/UP.
[2019-02-05 06:51] LABS: CALCIUM, SERUM 8.1 mg/dL (8.5-10.1); CARBON DIOXIDE 29 mmol/L (21-32); CHLORIDE 94 mmol/L (98-107); CREATININE 6.2 mg/dL (0.6-1.3); GLUCOSE 92 mg/dL (74-106); POTASSIUM 5.1 mmol/L (3.5-5.1); SODIUM SERUM 130 mmol/L (136-145); UREA NITROGEN, BLOOD 44 mg/dL (7-18)
--- NOTE | 2019-02-05 08:00 | NUR ---
MS RN NOTES PATIENT IN BED RESTING, ALERT, ORIENTED X4 MALAY SPEAKING. NO SOB OR ACUTE DISTRESS NOTED. PERIPHERAL IV INTACT PATENT. BED IN LOW LOCKED POSITION. PATIENT WAITING FOR HD TODAY. CALL LIGHT WITHIN REACH. WILL CONTINUE TO MONITOR.
[2019-02-05] MEDS: ASPIRIN EC 81 MG TABLET.DR PO SCH (08:18)
[2019-02-05] MEDS: SPIRONOLACTONE 25 MG TABLET PO SCH (08:18)
[2019-02-05] MEDS: BUMETANIDE (1 MG) 1 MG TABLET PO SCH ×2 (08:18→16:56)
[2019-02-05] MEDS: LACTOBACILLUS RHAMNOSUS GG 1 EACH CAP.SPRINK PO SCH ×2 (08:18→16:57)
[2019-02-05] MEDS: PANTOPRAZOLE 40 MG TABLET.DR PO SCH (08:18)
[2019-02-05] MEDS: INSULIN GLARGINE, 100 UNIT/ML CARTRIDGE SQ SCH ×2 (08:19→16:57)
[2019-02-05] MEDS: CARVEDILOL 12.5 MG TABLET PO SCH ×2 (08:19→22:29)
[2019-02-05] MEDS: hydrALAZINE HCL 10 MG TABLET PO SCH (08:20)
[2019-02-05 08:25] VITALS: BP 116/55
[2019-02-05 09:19] LABS: BASOPHILS % (AUTO) 0.4 % (0.0-2.0); EOSINOPHILS % (AUTO) 2.3 % (0.0-6.0); HEMATOCRIT 26 % (33-45); HEMOGLOBIN 8.5 g/dL (11.5-14.8); LYMPHOCYTES # (AUTO) 2.2 /CMM (0.8-4.8); MEAN CORPUSCULAR HGB CONC 33 g/dl (31.0-36.0); MEAN CORPUSCULAR VOLUME 92 fL (82-100); MONOCYTES # (AUTO) 1.2 /CMM (0.1-1.30); MONOCYTES % (AUTO) 10.3 % (2.0-12.0); NEUTROPHILS # (AUTO) 8.4 /CMM (1.8-8.9); PLATELET COUNT (AUTO) 338 /CMM (150-450); RED BLOOD CELL COUNT(AUTO) 2.81 MIL/uL (4.0-5.2); WHITE BLOOD COUNT (AUTO) 12.2 K/uL (4.3-11.0)
[2019-02-05] MEDS: HYDROCODONE/APAP 5/325MG 1 EACH TABLET PO PRN (11:37)
[2019-02-05 16:09] VITALS: BP 134/57
--- NOTE | 2019-02-05 18:48 | NUR ---
MS RN NOTES PATIENT IN BED ALERT, ORIENTED X4. PATIENTS PERIPHERAL IV INTACT PATENT. NO ACUTE CHANGES NOTED DURING AM SHIFT. PATIENTS WOUND WAS CHANGED DR. GRUBBS . ALL DUE MEDICATIONS ADMINISTERED, ALL NEEDS MET. WILL ENDORSE CARE TO PM SHIFT.
--- NOTE | 2019-02-05 19:35 | NUR ---
RN OPENING NOTES RECEIVED REPORT FROM LUIS RNROCKY. FOUND Pt AWAKE, RESTING IN BED. FAMILY VISITING AT BEDSIDE. NO S/S OF ACUTE DISTRESS OR SOB NOTED. NO C/O PAIN AT THIS TIME. IV ACCESS ON R WRIST #22G, SL. SAFETY MEASURES IN PLACE. BED LOW, LOCKED, HOB ELEVATED, SIDE RAILS UP, CALL LIGHT AND BEDSIDE TABLE WITHIN REACH. BED ALARM ON. WILL CONTINUE TO MONITOR Pt's CONDITION AND SAFETY THROUGHOUT THE NIGHT.
[2019-02-05 20:03] VITALS: BP 145/70
[2019-02-05 20:05] VITALS: BP 145/70
[2019-02-05] MEDS: ATORVASTATIN 10 MG TABLET PO SCH (22:28)
--- NOTE | 2019-02-05 22:41 | NUR ---
rn notes hs accucheck bg 197. administered 3un of insulin per sliding scale via lt deltoid.
[2019-02-06] MEDS: METRONIDAZOLE 500 MG TABLET PO SCH ×2 (05:54→12:13)
[2019-02-06] MEDS: INSULIN REGULAR, HUMAN 100 UNIT/ML 3 ML VIAL SQ PRN ×3 (06:35→17:07)
[2019-02-06] MEDS: BLOOD SUGAR DIAGNOSTIC 1 EACH STRIP IN SCH ×3 (06:35→17:11)
--- NOTE | 2019-02-06 06:36 | NUR ---
RN NOTES AC ACCUCHECK BG 163. ADMINISTERED 3UN OF INSULIN PER SLIDIDNG SCALE VIA RT DELTOID.
--- NOTE | 2019-02-06 06:45 | NUR ---
RN CLOSING NOTES NO SIGNIFICANT CHANGES IN Pt's CONDITION. Pt REMAINS STABLE PER BASELINE. NO S/S OF ACUTE DISTRESS OR SOB NOTED DURING THE SHIFT. ALL NEEDS MET AND ATTENDED TO. SAFETY MEASURES IN PLACE. BED LOW, LOCKED, HOB ELEVATED, SIDE RAILS UP, CALL LIGHT AND BEDSIDE TABLE WITHIN REACH. WILL ENDORSE TO DAYSHIFT RN FOR Pt's GONZALO.
[2019-02-06 06:48] LABS: CALCIUM, SERUM 8.2 mg/dL (8.5-10.1); CARBON DIOXIDE 26 mmol/L (21-32); CHLORIDE 97 mmol/L (98-107); CREATININE 5.4 mg/dL (0.6-1.3); GLUCOSE 166 mg/dL (74-106); POTASSIUM 5.4 mmol/L (3.5-5.1); SODIUM SERUM 131 mmol/L (136-145); UREA NITROGEN, BLOOD 36 mg/dL (7-18)
--- NOTE | 2019-02-06 07:14 | NUR ---
MS RN OPENING NOTES PATIENT RECEIVED IN BED AWAKE, A/O X4. HOB ELEVATED. CENTRAL AFRICAN SPEAKING, DENIES PAIN OR ANY DISCOMFORTS AT THIS TIME. ON ROOM AIR, TOLERATING WELL, RESPIRATIONS EVEN AND UNLABORED. IV SL ON RIGHT WRIST #22G INTACT AND PATENT, NO PHLEBITIS OR S/S OF INFILTRATIONS NOTED. PERMA CATH ON RCW IN PLACE WITH DRESSING C/D/I. SAFETY MEASURES IN PLACE. BED IN LOW LOCKED POSITION WITH SR UP X2. CALL LIGHT AND BEDSIDE TABLE WITHIN EASY REACH OF PT. WILL CONTINUE TO MONITOR ACCORDINGLY.
[2019-02-06] MEDS: PANTOPRAZOLE 40 MG TABLET.DR PO SCH (07:33)
[2019-02-06] MEDS: BUMETANIDE (1 MG) 1 MG TABLET PO SCH ×2 (08:19→16:35)
[2019-02-06] MEDS: LACTOBACILLUS RHAMNOSUS GG 1 EACH CAP.SPRINK PO SCH ×2 (08:19→16:35)
[2019-02-06] MEDS: hydrALAZINE HCL 10 MG TABLET PO SCH (08:20)
[2019-02-06] MEDS: ASPIRIN EC 81 MG TABLET.DR PO SCH (08:20)
[2019-02-06] MEDS: SPIRONOLACTONE 25 MG TABLET PO SCH (08:20)
[2019-02-06] MEDS: CARVEDILOL 12.5 MG TABLET PO SCH (08:20)
[2019-02-06 08:22] VITALS: BP 129/63
[2019-02-06] MEDS: INSULIN GLARGINE, 100 UNIT/ML CARTRIDGE SQ SCH ×2 (08:51→17:06)
[2019-02-06] MEDS ORDERED: INSU100V7 SQ (10:42)
[2019-02-06] MEDS ORDERED: LEVO500T75 PO (10:48)
[2019-02-06] MEDS ORDERED: METR500T PO (10:50)
[2019-02-06] MEDS: LEVOFLOXACIN (500MG) 500 MG TABLET PO SCH (12:13)
--- NOTE | 2019-02-06 14:26 | NUR ---
RN NOTES PATIENT FOR DISCHARGE HOME THIS AFTERNOON. RECEIVED CALL FROM KOBE FROM DAMARIS TELLEZ'S OFFICE AND RECEIVED PROCEDURE INSTRUCTION FOR PT BEFORE ANGIOGRAM ON Saturday AT [facility]. PROCEDURE EXPLAINED TO PT IN [place] BY RIANA FORDE, PT VERBALIZED UNDERSTANDING AND STATED THAT WE ALSO NEED TO DISCUSS/EXPLAIN THE INSTRUCTIONS TO HER SON MOON WHEN HE COMES TO THE HOSPITAL LATER THIS AFTERNOON.
--- NOTE | 2019-02-06 15:42 | NUR ---
RN NOTES RECEIVED CALL FROM CORRY TRINIDAD THAT PT WILL BE UNDER COUNT INCLUDES THE [facility] WITH TEL # [phone]. HE SAID THAT ALL AUTHORIZATION WERE MADE AND CONFIRMED. PT WAS INFORMED AND VERBALIZED UNDERSTANDING.
[2019-02-06 16:00] VITALS: BP 165/72
--- NOTE | 2019-02-06 18:40 | NUR ---
RN DISCHARGED NOTES PT DISCHARGE HOME IN STABLE CONDITION. A/O X4, SAME ABLE TO MAKE NEEDS KNOWN, NO C/O PAIN OR SOB DURING DISCHARGE. VSS AND RECORDED. PHOTOS OF SKIN ISSUES TAKEN AND FILED IN CHART. NAME ARMBAND AND IV ACCESS REMOVED, NO ACTIVE BLEEDING NOTED. ALL BELONGINGS ACCOUNTED FOR AND SIGNED FORM. PERMA CATH ON RCW IN PLACE WITH DRESSING C/D/I. HEALTh TEACHINGS/DISCHARGE INSTRUCTIONS GIVEN TO PT AND SON, BOTH VERBALIZED UNDERSTANDING. APPOINTMENT REMINDER FOR ANGIOGRAM TO [facility] ON SATURDAY HANDED TO PT'S SON. PT LEFT UNIT VIA WHEELCHAIR @ 1820 ACCOMPANIED BY TALENT COORDINATOR AND PT'S SON MOON. AND CHARGE NURSE AWARE OF DISCHARGE.
== END 2019-02-06 18:26 | disposition home health service (06) | DRG 853 ==
LOC: MED 01-31 00:48
PROVIDERS: ATTEND Internal Medicine
PROC: 5A1D70Z Performance of Urinary Filtration, Intermittent, Less than 6 Hours Per Day (ICD-10-PCS; 2019-02-01)
PROC: 0JBR0ZZ Excision of Left Foot Subcutaneous Tissue and Fascia, Open Approach (ICD-10-PCS; principal; 2019-02-02)
PROC: 0JBR0ZZ Excision of Left Foot Subcutaneous Tissue and Fascia, Open Approach (ICD-10-PCS; 2019-02-03)
DX: A41.9 Sepsis, unspecified organism (principal); N18.6 End stage renal disease; A48.0 Gas gangrene; L03.116 Cellulitis of left lower limb; S82.202A Unspecified fracture of shaft of left tibia, initial encounter for closed fracture; I12.0 Hypertensive chronic kidney disease with stage 5 chronic kidney disease or end stage renal disease; N39.0 Urinary tract infection, site not specified; E87.1 Hypo-osmolality and hyponatremia; L97.528 Non-pressure chronic ulcer of other part of left foot with other specified severity; E11.52 Type 2 diabetes mellitus with diabetic peripheral angiopathy with gangrene; M86.8X7 Other osteomyelitis, ankle and foot; E11.69 Type 2 diabetes mellitus with other specified complication; Z68.36 Body mass index [BMI] 36.0-36.9, adult; E11.621 Type 2 diabetes mellitus with foot ulcer; E11.22 Type 2 diabetes mellitus with diabetic chronic kidney disease; Z99.2 Dependence on renal dialysis; B96.20 Unspecified Escherichia coli [E. coli] as the cause of diseases classified elsewhere; D63.8 Anemia in other chronic diseases classified elsewhere; E11.40 Type 2 diabetes mellitus with diabetic neuropathy, unspecified; E87.70 Fluid overload, unspecified; Z79.4 Long term (current) use of insulin; Z88.0 Allergy status to penicillin; E83.9 Disorder of mineral metabolism, unspecified; S82.52XS Displaced fracture of medial malleolus of left tibia, sequela; S92.352S Displaced fracture of fifth metatarsal bone, left foot, sequela; S92.415S Nondisplaced fracture of proximal phalanx of left great toe, sequela; X58.XXXS Exposure to other specified factors, sequela
CPT/HCPCS: 36415; 73630-TC; 80048-TC; 80053-TC; 80061-TC; 80202-TC; 81000-TC; 82962-TC; 83735-TC; 84100-TC; 84443-TC; 85025-TC; 87070-TC; 87081-TC; 87086-TC; 87186-TC; 87340; 90935-TC; A4216; A6253; A6403; A6407; G0378; J0885; J1815; J2185; J2270; J3370; J3490; J7030; J7060

== ENCOUNTER 2019-04-09 16:38 | Inpatient (IN) | payer OTHER ==
[~2019-04-09] VITALS: Ht 154.9 cm; Wt 72.6 kg
[~2019-04-09 16:38] MED LIST: ASPI-1152 PO; ATOR80TA PO; BUME2TAB7 PO; CARV25TA2 PO; HYDR-4075 PO; INSU100I4 SQ; INSU100V7 SQ; LEVO500T75 PO; METR500T PO; OMEP20CA15 PO; SPIR25TA6 PO
--- NOTE | 2019-04-09 16:42 | NUR ---
BIB FAMILY,MISSED DIALYSIS MILADYS AND TODAY BECAUSE OF WEAKNESS, ALSO C/O DIZZINESS. SON MENTIONED PATIENT HAVING 2 EPISODES OF LOOSE STOOLS TODAY. TO ER BED 10, HOOKED TO BREAKFAST COOK, CHANGED TO HOSP GOWN, PROVIDED TRINY LINDSAY, DR ZAMARRIPA AT BEDSIDE
[2019-04-09 17:30] LABS: BASOPHILS % (AUTO) 0.5 % (0.0-2.0); EOSINOPHILS % (AUTO) 2.3 % (0.0-6.0); HEMATOCRIT 36 % (33-45); HEMOGLOBIN 11.8 g/dL (11.5-14.8); LYMPHOCYTES % (AUTO) 25.7 % (20.0-44.0); MEAN CORPUSCULAR HGB CONC 33 g/dl (31.0-36.0); MEAN CORPUSCULAR VOLUME 98 fL (82-100); MONOCYTES % (AUTO) 12.6 % (2.0-12.0); NEUTROPHILS # (AUTO) 4.6 /CMM (1.8-8.9); NEUTROPHILS % (AUTO) 58.9 % (43.0-81.0); PLATELET COUNT (AUTO) 219 /CMM (150-450); WHITE BLOOD COUNT (AUTO) 7.8 K/uL (4.3-11.0)
[2019-04-09 17:46] LABS: ALANINE AMINOTRANSFERASE 15 U/L (12-78); ALBUMIN 2.5 g/dL (3.4-5.0); ALKALINE PHOSPHATASE 100 U/L (46-116); ASPARTATE AMINOTRANSFERASE 13 U/L (15-37); BILIRUBIN,DIRECT 0.1 mg/dL (0.0-0.2); BILIRUBIN,TOTAL 0.5 mg/dL (0.2-1.0); CALCIUM, SERUM 8.9 mg/dL (8.5-10.1); CARBON DIOXIDE 28 mmol/L (21-32); CHLORIDE 101 mmol/L (98-107); GLUCOSE 308 mg/dL (74-106); SODIUM SERUM 136 mmol/L (136-145); TOTAL PROTEIN, SERUM 7.4 g/dL (6.4-8.2); UREA NITROGEN, BLOOD 39 mg/dL (7-18)
[2019-04-09 17:48] LABS: CREATININE 7.6 mg/dL (0.6-1.3)
[2019-04-09] MEDS ORDERED: SODIUM POLYSTYRENE SULF. PWD 15 GM UDC PO ONE (18:00)
[2019-04-09] MEDS ORDERED: INSULIN REGULAR, HUMAN 100 UNIT/ML 10 ML VIAL IV ONE (18:00)
[2019-04-09] MEDS ORDERED: SODIUM POLYSTYRENE SULFONATE 15 G/60 ML BOTTLE ONE (18:17)
[2019-04-09] MEDS ORDERED: INSULIN REGULAR, HUMAN 100 UNIT/ML 10 ML VIAL ONE (18:17)
[2019-04-09] MEDS ORDERED: LEVO500T75 PO (18:28)
[2019-04-09] MEDS ORDERED: VANC1VIA IV (18:28)
[2019-04-09] MEDS ORDERED: METR500T PO (18:28)
[2019-04-09] MEDS ORDERED: INSU100V7 SQ (18:28)
[2019-04-09] MEDS ORDERED: FOLI0.8T2 PO (18:31)
[2019-04-09] MEDS ORDERED: TURM500C9 PO (18:31)
[2019-04-09] MEDS ORDERED: CALC-7 PO (18:31)
[2019-04-09] MEDS ORDERED: CHOL200026 PO (18:31)
[2019-04-09] MEDS ORDERED: OMEG1CAP PO (18:31)
--- NOTE | 2019-04-09 19:02 | NUR ---
CORRY HOROWITZ VERBAL AUTHORIZATION TO ADMIT UNDER OBS FOR DIALYSIS.
--- NOTE | 2019-04-09 19:29 | NUR ---
CALLED NURSING SUP FOR TELE BED.
--- NOTE | 2019-04-09 20:00 | NUR ---
CALLED RN SUP FOR TELE BED AGAIN
--- NOTE | 2019-04-09 20:15 | NUR ---
EPIC paged for panel call
--- NOTE | 2019-04-09 20:42 | NUR ---
epic was paged again
--- NOTE | 2019-04-09 20:49 | NUR ---
dr barry speaking to dr jameson for panel call
--- NOTE | 2019-04-09 21:07 | NUR ---
REPORT ANDREW KEATING, RN
[2019-04-09 21:25] LABS: CALCIUM, SERUM 8.6 mg/dL (8.5-10.1); CARBON DIOXIDE 25 mmol/L (21-32); CHLORIDE 101 mmol/L (98-107); GLUCOSE 164 mg/dL (74-106); SODIUM SERUM 136 mmol/L (136-145); UREA NITROGEN, BLOOD 40 mg/dL (7-18)
[2019-04-09 21:29] LABS: CREATININE 7.6 mg/dL (0.6-1.3); POTASSIUM 6.2 mmol/L (3.5-5.1)
[2019-04-09] MEDS ORDERED: MAG HYDROX/AL HYDROX/SIMETH 30 ML UDC PO PRN (21:30)
[2019-04-09] MEDS ORDERED: HYDROCODONE/APAP 10/325MG 1 EA TABLET PO PRN (21:30)
[2019-04-09] MEDS ORDERED: ACETAMINOPHEN 325 MG TABLET PO PRN (21:30)
[2019-04-09] MEDS ORDERED: MAGNESIUM HYDROXIDE 30 ML UDC PO PRN (21:30)
[2019-04-09] MEDS ORDERED: HYDROCODONE/APAP 5/325MG 1 EACH TABLET PO PRN (21:30)
[2019-04-09] MEDS ORDERED: Z GUARD REMEDY 2 OZ OINT TP PRN (21:30)
[2019-04-09] MEDS ORDERED: ONDANSETRON HCL/PF 4 MG/2 ML VIAL IVP PRN (21:30)
[2019-04-09] MEDS ORDERED: DEXTROSE 50%-WATER 50 ML DISP.SYRIN IV PRN (21:30)
[2019-04-09 21:45] VITALS: BP 143/69
--- NOTE | 2019-04-09 21:45 | NUR ---
tele grader green [employer] initial notes admit pt from ER via jose e accompanied by ER nurse and tech. DX of hyperkalemia. pt is alert oriented turkmen speaking denies any pain or any discomfort and patient saying she's here before. oriented where she at and how to used the call light system . pt understood well,. assessment done and recorded. pt stated she's hungry spoke to her that i will checked her blood sugar first . pt said "ok". applied tele monitor applied and explained to the patient the purpose of it and understood well. place call light at reach will continue monitoring.
--- NOTE | 2019-04-09 21:45 | NUR ---
PT TRANSFERRED IN STABLE CONDITION TO [facility]
[2019-04-09] MEDS: BLOOD SUGAR DIAGNOSTIC 1 EACH STRIP IN SCH (22:17)
[2019-04-09] MEDS: INSULIN REGULAR, HUMAN 100 UNIT/ML 3 ML VIAL SQ PRN (22:18)
[2019-04-09] MEDS ORDERED: METRONIDAZOLE 500MG/ NS 100ML 100 ML IV ONE (22:33)
[2019-04-09] MEDS ORDERED: VANCOMYCIN 1 GM VIAL ONE (22:34)
[2019-04-09] MEDS ORDERED: CEFTRIAXONE 1 G VIAL ONE (22:34)
[2019-04-09] MEDS ORDERED: VANCOMYCIN 1 GM in IV D5W 250ml IV ONE (23:00)
[2019-04-09] MEDS: CEFTRIAXONE 1 G in IV D5W 50 ML IV SCH (23:15)
[2019-04-10] MEDS: METRONIDAZOLE 500MG/ NS 100ML 500 MG in PREMIX 1 EA IV SCH ×4 (00:04→22:44)
--- NOTE | 2019-04-10 01:00 | NUR ---
ms electrical continuity tester notes pt sleeping comfortably in bed without any distress noted.
[2019-04-10 04:00] VITALS: BP 129/63
--- NOTE | 2019-04-10 04:22 | NUR ---
summer nanny notes pt remains sleeping comfortably in bed without any distress noted. kept her warm and comfortable at all times. tele SR per monitor. will continue monitoring.
[2019-04-10] MEDS ORDERED: METRONIDAZOLE 500MG/ NS 100ML 100 ML IV ONE (06:11)
[2019-04-10] MEDS: BLOOD SUGAR DIAGNOSTIC 1 EACH STRIP IN SCH ×4 (06:22→22:00)
--- NOTE | 2019-04-10 07:11 | NUR ---
telel combine inspector closing notes pt back to sleep after morning care done. all due meds given and all need met. stable skye the night and slept well . blood sugar checked 164, no insulin given at this time but i endorse to am nurse to coverage the blood sugar. no signs of any hypo glycemia and denies any pain or any discomfort. tele SR per monitor. place call light at reach. endorse to am nurse.
--- NOTE | 2019-04-10 07:35 | NUR ---
TAPER MACHINE OPENING NOTES RECEIVED PT IN BED. AWAKE, A/OX 4. TOLERATING RA AT THIS TIME, WITH NO ACUTE RESPIRATORY DISTRESS NOTED. TONGAN SPEAKING, CAN UNDERSTAND A LITTLE ROMANIAN. PT DENIES ANY PAIN OR DISCOMFORT AT THIS TIME. ON TELEMONITORING, SR 80. PT ALSO DENIES, CONCERNS AND QUESTIONS AT THE MOMENT. PIV LAC G20, FLUSHED WITH NS, INTACT AND OPERATIONAL. PT KEPT COMFORTABLE. CALL LIGHT KEPT WITHIN REACH. PT'S BED IN LOWEST, LOCKED POSITION WITH SR X3. WILL CONTINUE PLAN OF CARE.
[2019-04-10] MEDS ORDERED: FEE PK DOSING 1 MIN EA MC ONE (07:57)
[2019-04-10 08:00] VITALS: BP 141/72
[2019-04-10] MEDS ORDERED: VANCOMYCIN 500 MG in IV D5W 100 ML IV PRN (08:00)
[2019-04-10 08:26] LABS: BASOPHILS % (AUTO) 0.5 % (0.0-2.0); EOSINOPHILS % (AUTO) 2.4 % (0.0-6.0); HEMATOCRIT 34 % (33-45); HEMOGLOBIN 11.3 g/dL (11.5-14.8); LYMPHOCYTES # (AUTO) 2.3 /CMM (0.8-4.8); LYMPHOCYTES % (AUTO) 27.6 % (20.0-44.0); MEAN CORPUSCULAR HGB CONC 34 g/dl (31.0-36.0); MEAN CORPUSCULAR VOLUME 97 fL (82-100); MONOCYTES % (AUTO) 11.8 % (2.0-12.0); NEUTROPHILS # (AUTO) 4.9 /CMM (1.8-8.9); NEUTROPHILS % (AUTO) 57.7 % (43.0-81.0); PLATELET COUNT (AUTO) 202 /CMM (150-450); RED BLOOD CELL COUNT(AUTO) 3.48 MIL/uL (4.0-5.2); WHITE BLOOD COUNT (AUTO) 8.4 K/uL (4.3-11.0)
[2019-04-10 08:29] LABS: CALCIUM, SERUM 8.4 mg/dL (8.5-10.1); CARBON DIOXIDE 24 mmol/L (21-32); CHLORIDE 102 mmol/L (98-107); GLUCOSE 177 mg/dL (74-106); MAGNESIUM 1.8 mg/dL (1.8-2.4); PHOSPHORUS 4.8 mg/dL (2.5-4.9); POTASSIUM 5.7 mmol/L (3.5-5.1); SODIUM SERUM 137 mmol/L (136-145); UREA NITROGEN, BLOOD 43 mg/dL (7-18)
[2019-04-10 08:32] LABS: CREATININE 7.9 mg/dL (0.6-1.3)
[2019-04-10 08:34] LABS: CHOLESTEROL 65 mg/dL (<200); HDL CHOLESTEROL 39 mg/dL (40-60); LDL 14 mg/dL (0-99); THYROID STIMULATING HORMONE 4.161 uIU/mL (0.358-3.74); TRIGLYCERIDES 104 mg/dL (30-150)
[2019-04-10] MEDS: ATORVASTATIN 40 MG TABLET PO SCH (08:37)
[2019-04-10] MEDS: VIT B CMPLX 3/FA/VIT C/BIOTIN 1 TAB TABLET PO SCH (08:37)
[2019-04-10] MEDS: CHOLECALCIFEROL 1,000 UNIT TABLET (VIT D3) PO SCH (08:37)
[2019-04-10] MEDS: CARVEDILOL 12.5 MG TABLET PO SCH ×2 (08:38→22:10)
[2019-04-10] MEDS: BUMETANIDE (1 MG) 1 MG TABLET PO SCH (08:38)
[2019-04-10] MEDS: CALCIUM CARB 250MG /VITAMIN D 1 UDTAB PO SCH ×2 (08:39→16:48)
[2019-04-10] MEDS: hydrALAZINE HCL 10 MG TABLET PO SCH ×2 (08:39→16:49)
[2019-04-10] MEDS ORDERED: CARVEDILOL 25 MG TABLET PO SCH (09:00)
[2019-04-10] MEDS ORDERED: Medication Not On Formulary EA (Omega-3 Fatty Acids/Fish Oil (Fish Oil 1,000 Mg Capsule) PO SCH (09:00)
[2019-04-10] MEDS ORDERED: Medication Not On Formulary EA (Turmeric Root Extract (Turmeric) 500 MG) PO SCH (09:00)
[2019-04-10] MEDS: INSULIN GLARGINE, 100 UNIT/ML CARTRIDGE SQ SCH ×2 (09:47→21:00)
--- NOTE | 2019-04-10 11:43 | NUR ---
WOUND CARE CONSULT WOUND CARE RECEIVED CONSULT FOR LEFT FOOT ULCER. WOUND CARE WILL DEFER CONSULT AND TREATMENT PLANS TO PODIATRY TEAM DR GRUBBS WHO IS CURRENTLY FOLLOWING THIS PATIENT. PATIENT WITH MILENA AT 17, ALL PRESSURE ULCER PREVENTION MEASURES ARE NOTED TO BE IN PLACE. WILL SEE PRN.
[2019-04-10] MEDS: INSULIN REGULAR, HUMAN 100 UNIT/ML 3 ML VIAL SQ PRN ×3 (12:18→21:59)
--- NOTE | 2019-04-10 12:40 | NUR ---
TOOL TENDER NOTES SEEN AND EVALUATED BY POPCORN VENDOR. S/P WOUND DEBRIDEMENT WELL, CONSENT SIGNED BY PT. DRESSING TO LEFT FOOT REPLACED. NEW WOUND TREATMENT ORDERED. PT AWARE.
--- NOTE | 2019-04-10 14:42 | NUR ---
TERRA COTTA MASON NOTES PT FOR HD TODAY. DIALYSIS NURS/BENEDICTO AWARE AND STATED HD WILL BE THIS AFTERNOON.
[2019-04-10 16:00] VITALS: BP 112/53
--- NOTE | 2019-04-10 18:40 | NUR ---
MS RN NOTES DIALYSIS NURSE JUST STARTED TO PREP PT FOR HD.
--- NOTE | 2019-04-10 18:40 | NUR ---
MS RN CLOSING NOTES PT REMAINS IN BED. AWAKE, A/OX 4. TOLERATING RA, WITH NO ACUTE RESPIRATORY DISTRESS NOTED. LAO SPEAKING, CAN UNDERSTAND A LITTLE PORTUGUESE. PT DENIES ANY PAIN OR DISCOMFORT AT THIS TIME. PIV LAC G20, FLUSHED WITH NS, INTACT AND OPERATIONAL. PT KEPT COMFORTABLE. ALL NEEDS AND CARE ATTENDED. CALL LIGHT KEPT WITHIN REACH. PT'S BED IN LOWEST, LOCKED POSITION WITH SR X3. WILL ENDORSE TO INCOMING NIGHT NURSE FOR GON[facility]ALO.
[2019-04-10 19:30] VITALS: BP 116/69
--- NOTE | 2019-04-10 19:30 | NUR ---
MS RN NOTES PATIENT IN BED, AWAKE, ALERT AND ORIENTED 4. BREATHING EVEN AND UNLABORED ON ROOM AIR. SHOWS NO SIGNS OF ACUTE RESPIRATORY DISTRESS, NO ACUTE PAIN. IV ON LAC 20G, SHOWS NO SIGNS OF INFILTRATION NO REDNESS. PATIENT CURRENTLY ON HD. SAFETY PRECAUTION IN PLACE. BED IN LOWEST POSITION, LOCKED, AND CALL LIGHT KEPT WITHIN REACH. WILL CONTINUE TO MONITOR.
[2019-04-10 20:00] VITALS: BP 116/66
[2019-04-10] MEDS: CEFTRIAXONE 1 G in IV D5W 50 ML IV SCH (21:24)
[2019-04-11] MEDS: METRONIDAZOLE 500MG/ NS 100ML 500 MG in PREMIX 1 EA IV SCH ×3 (05:04→22:27)
--- NOTE | 2019-04-11 06:28 | NUR ---
MS RN NOTES PATIENT IN BED, ASLEEP, ALERT AND ORIENTED 4. BREATHING EVEN AND UNLABORED ON ROOM AIR. SHOWS NO SIGNS OF ACUTE RESPIRATORY DISTRESS, NO ACUTE PAIN. IV ON LAC 20G, SHOWS NO SIGNS OF INFILTRATION NO REDNESS. ALL DUE MEDICATIONS GIVEN. SAFETY PRECAUTION IN PLACE. BED IN LOWEST POSITION, LOCKED, AND CALL LIGHT KEPT WITHIN REACH. WLL ENDORSE TO ONCOMING SHIFT.
[2019-04-11] MEDS: BLOOD SUGAR DIAGNOSTIC 1 EACH STRIP IN SCH ×4 (06:35→22:27)
--- NOTE | 2019-04-11 07:35 | NUR ---
MS RN OPENING NOTES RECEIVED PT IN BED. AWAKE, A/O X4, CROATIAN SPEAKING BUT CAN UNDERSTAND ALBANIAN. PT TOLERATING RA, WITH NO ACUTE RESPIRATORY DISTRESS NOTED. PT DENIES ANY PAIN OR DISCOMFORT AT THIS TIME. PT ALSO DENIES, CONCERNS AND QUESTIONS AT THE MOMENT. PIV TO LAC G20 SL, FLUSHED WITH NS, INTACT AND OPERATIONAL. PT KEPT COMFORTABLE. CALL LIGHT KEPT WITHIN REACH. PT'S BED IN LOWEST, LOCKED POSITION WITH SR X3. WILL CONTINUE PLAN OF CARE.
[2019-04-11 07:49] LABS: BASOPHILS % (AUTO) 0.5 % (0.0-2.0); EOSINOPHILS % (AUTO) 1.9 % (0.0-6.0); HEMATOCRIT 33 % (33-45); HEMOGLOBIN 10.6 g/dL (11.5-14.8); LYMPHOCYTES % (AUTO) 27.8 % (20.0-44.0); MEAN CORPUSCULAR HGB CONC 33 g/dl (31.0-36.0); MEAN CORPUSCULAR VOLUME 97 fL (82-100); MONOCYTES % (AUTO) 14.4 % (2.0-12.0); NEUTROPHILS % (AUTO) 55.4 % (43.0-81.0); PLATELET COUNT (AUTO) 180 /CMM (150-450); RED BLOOD CELL COUNT(AUTO) 3.37 MIL/uL (4.0-5.2); WHITE BLOOD COUNT (AUTO) 7.2 K/uL (4.3-11.0)
[2019-04-11 08:00] VITALS: BP 126/66
[2019-04-11 08:52] LABS: CALCIUM, SERUM 8.1 mg/dL (8.5-10.1); CARBON DIOXIDE 26 mmol/L (21-32); CHLORIDE 103 mmol/L (98-107); CREATININE 5.7 mg/dL (0.6-1.3); GLUCOSE 133 mg/dL (74-106); MAGNESIUM 1.8 mg/dL (1.8-2.4); PHOSPHORUS 4.7 mg/dL (2.5-4.9); POTASSIUM 5.3 mmol/L (3.5-5.1); SODIUM SERUM 140 mmol/L (136-145); UREA NITROGEN, BLOOD 24 mg/dL (7-18)
[2019-04-11] MEDS: CHOLECALCIFEROL 1,000 UNIT TABLET (VIT D3) PO SCH (09:35)
[2019-04-11] MEDS: CARVEDILOL 12.5 MG TABLET PO SCH ×2 (09:36→22:27)
[2019-04-11] MEDS: CALCIUM CARB 250MG /VITAMIN D 1 UDTAB PO SCH ×2 (09:36→16:52)
[2019-04-11] MEDS: VIT B CMPLX 3/FA/VIT C/BIOTIN 1 TAB TABLET PO SCH (09:36)
[2019-04-11] MEDS: BUMETANIDE (1 MG) 1 MG TABLET PO SCH (09:36)
[2019-04-11] MEDS: hydrALAZINE HCL 10 MG TABLET PO SCH ×2 (09:37→16:52)
[2019-04-11] MEDS: ATORVASTATIN 40 MG TABLET PO SCH (09:37)
[2019-04-11] MEDS: SILVER SULFADIAZINE 50 GM JAR TP SCH (09:38)
[2019-04-11] MEDS: HYDROGEL DRESSING 90 GM TUBE TP SCH (09:39)
[2019-04-11] MEDS: INSULIN GLARGINE, 100 UNIT/ML CARTRIDGE SQ SCH ×2 (09:40→23:11)
--- NOTE | 2019-04-11 12:50 | NUR ---
MS RN NOTES PT STARTED DIALYSIS. NO INSULIN COVERAGE GIVEN, PT REFUSED. IV VANCO TO GIVE AFTER HD.
[2019-04-11 16:00] VITALS: BP 100/56
[2019-04-11] MEDS ORDERED: VANCOMYCIN 1 GM in IV D5W 250 ML IV ONE (16:00)
[2019-04-11] MEDS: INSULIN REGULAR, HUMAN 100 UNIT/ML 3 ML VIAL SQ PRN ×2 (17:31→23:12)
--- NOTE | 2019-04-11 18:49 | NUR ---
MS RN OPENING NOTES PT REMAINS IN BED. AWAKE, A/O X4, BELARUSIAN SPEAKING BUT CAN UNDERSTAND ISRAELI. PT TOLERATING RA, WITH NO ACUTE RESPIRATORY DISTRESS NOTED. PT DENIES ANY PAIN OR DISCOMFORT AT THIS TIME. PIV TO LAC G20 SL, FLUSHED WITH NS, INTACT AND OPERATIONAL. PT KEPT COMFORTABLE. ALL NEEDS AND CARE ATTENDED. CALL LIGHT KEPT WITHIN REACH. PT'S BED IN LOWEST, LOCKED POSITION WITH SR X3. WILL ENDORSE TO INCOMING NIGHT NURSE FOR GONZALO. Addendum: 04/11/19 at 1850 by MONIQUE CEJA RN THIS NOTE IS CLOSING NOTES, NOT OPENING.
--- NOTE | 2019-04-11 18:50 | NUR ---
MS RN CLOSING NOTES PT REMAINS IN BED. AWAKE, A/O X4, TAMAZIGHT SPEAKING BUT CAN UNDERSTAND JAPANESE. PT TOLERATING RA, WITH NO ACUTE RESPIRATORY DISTRESS NOTED. PT DENIES ANY PAIN OR DISCOMFORT AT THIS TIME. PIV TO LAC G20 SL, FLUSHED WITH NS, INTACT AND OPERATIONAL. PT KEPT COMFORTABLE. ALL NEEDS AND CARE ATTENDED. CALL LIGHT KEPT WITHIN REACH. PT'S BED IN LOWEST, LOCKED POSITION WITH SR X3. WILL ENDORSE TO INCOMING NIGHT NURSE FOR GONZALO.
[2019-04-11 20:00] VITALS: BP 126/73
--- NOTE | 2019-04-11 20:00 | NUR ---
MS/RN OPENING NOTES RECEIVED PATIENT IN BED, AWAKE, ALERT X3, ABLE TO VERBALIZE NEEDS, AND RESPOND WITH CALM MANNER. ON BLOOD SUGAR CHECK MONITOIRNG, ON IV ANTIBIOTIC. BED LOCKED, CALL LIGHTS WITHIN REACH.
[2019-04-11] MEDS: CEFTRIAXONE 1 G in IV D5W 50 ML IV SCH (22:26)
[2019-04-12] MEDS: METRONIDAZOLE 500MG/ NS 100ML 500 MG in PREMIX 1 EA IV SCH (05:07)
[2019-04-12] MEDS ORDERED: VANCOMYCIN 500 MG in IV D5W 100 ML IV PRN (06:00)
[2019-04-12] MEDS: BLOOD SUGAR DIAGNOSTIC 1 EACH STRIP IN SCH ×2 (06:27→12:02)
--- NOTE | 2019-04-12 06:54 | NUR ---
307-2 MS/RN CLOSING NOTES PATIENT ABLE TO SLEEP DURING NIGHT, KEPT COMFORTABLE. ATTENDED TO ALL NEEDS. BED LOCKED, CALL LIGHTS WITHIN REACH. MONITORED .WILL ENDOR
--- NOTE | 2019-04-12 07:44 | NUR ---
MS/RN OPENING NOTE Patient received resting in bed, A/O x4, showing no signs of acute distress or SOB, saturating >95% on RA. IV line is clean and intact. Patient has no complaints at this time. Bed is in lowest position, side rails x2 in upright position, call light is within reach and patient is aware of how to call for assistance when needed. Will continue with plan of care.
[2019-04-12 08:00] VITALS: BP 129/68
[2019-04-12] MEDS: hydrALAZINE HCL 10 MG TABLET PO SCH (09:00)
[2019-04-12] MEDS: ATORVASTATIN 40 MG TABLET PO SCH (09:04)
[2019-04-12] MEDS: BUMETANIDE (1 MG) 1 MG TABLET PO SCH (09:04)
[2019-04-12 09:05] VITALS: BP 129/68
[2019-04-12] MEDS: CALCIUM CARB 250MG /VITAMIN D 1 UDTAB PO SCH (09:05)
[2019-04-12] MEDS: VIT B CMPLX 3/FA/VIT C/BIOTIN 1 TAB TABLET PO SCH (09:05)
[2019-04-12] MEDS: CARVEDILOL 12.5 MG TABLET PO SCH (09:05)
[2019-04-12] MEDS: CHOLECALCIFEROL 1,000 UNIT TABLET (VIT D3) PO SCH (09:05)
[2019-04-12] MEDS: INSULIN GLARGINE, 100 UNIT/ML CARTRIDGE SQ SCH (09:13)
[2019-04-12] MEDS: HYDROGEL DRESSING 90 GM TUBE TP SCH (09:14)
[2019-04-12] MEDS: SILVER SULFADIAZINE 50 GM JAR TP SCH (09:14)
[2019-04-12 09:29] LABS: CALCIUM, SERUM 8.4 mg/dL (8.5-10.1); CARBON DIOXIDE 28 mmol/L (21-32); CHLORIDE 104 mmol/L (98-107); CREATININE 5.2 mg/dL (0.6-1.3); GLUCOSE 126 mg/dL (74-106); MAGNESIUM 1.9 mg/dL (1.8-2.4); PHOSPHORUS 5.1 mg/dL (2.5-4.9); POTASSIUM 4.8 mmol/L (3.5-5.1); SODIUM SERUM 141 mmol/L (136-145); UREA NITROGEN, BLOOD 25 mg/dL (7-18)
[2019-04-12 09:34] LABS: BASOPHILS % (AUTO) 0.5 % (0.0-2.0); EOSINOPHILS % (AUTO) 2.6 % (0.0-6.0); HEMATOCRIT 34 % (33-45); HEMOGLOBIN 11.3 g/dL (11.5-14.8); LYMPHOCYTES # (AUTO) 1.9 /CMM (0.8-4.8); LYMPHOCYTES % (AUTO) 27.8 % (20.0-44.0); MEAN CORPUSCULAR HGB CONC 34 g/dl (31.0-36.0); MEAN CORPUSCULAR VOLUME 96 fL (82-100); MONOCYTES # (AUTO) 0.9 /CMM (0.1-1.30); MONOCYTES % (AUTO) 13.7 % (2.0-12.0); NEUTROPHILS # (AUTO) 3.8 /CMM (1.8-8.9); NEUTROPHILS % (AUTO) 55.4 % (43.0-81.0); PLATELET COUNT (AUTO) 158 /CMM (150-450); RED BLOOD CELL COUNT(AUTO) 3.51 MIL/uL (4.0-5.2); WHITE BLOOD COUNT (AUTO) 6.9 K/uL (4.3-11.0)
[2019-04-12] MEDS: INSULIN REGULAR, HUMAN 100 UNIT/ML 3 ML VIAL SQ PRN (13:16)
--- NOTE | 2019-04-12 13:28 | NUR ---
MS/RN ALLERGY NOTE Patient is medically stable for discharge. Vital signs WNL, breathing is even and unlabored, saturating >95% on RA. Skin assessed, photos taken and placed in chart, wound care done as ordered. DC instructions provided and patient verbalizes understanding, son at the bedside. Patient has all belongings with them, belongings list signed and placed in chart. Patient kept clean and dry throughout shift, all patient needs met, all due meds given. MD is aware of discharge. IV removed and ID band removed. Patient left the unit in wheelchair accompanied by son and I and left hospital via private car.
== END 2019-04-12 13:28 | disposition home health service (06) | DRG 981 ==
LOC: ER 16:40 → TELE 21:00 → MED 04-10 16:03
PROVIDERS: ADMIT Nurse Practitioner Acute Care; ATTEND Internal Medicine
PROC: 5A1D70Z Performance of Urinary Filtration, Intermittent, Less than 6 Hours Per Day (ICD-10-PCS; principal; 2019-04-10)
PROC: 0LBW0ZZ Excision of Left Foot Tendon, Open Approach (ICD-10-PCS; principal; 2019-04-10)
DX: L03.116 Cellulitis of left lower limb (principal); N18.6 End stage renal disease; I12.0 Hypertensive chronic kidney disease with stage 5 chronic kidney disease or end stage renal disease; E44.0 Moderate protein-calorie malnutrition; E11.621 Type 2 diabetes mellitus with foot ulcer; L97.529 Non-pressure chronic ulcer of other part of left foot with unspecified severity; Z99.2 Dependence on renal dialysis; E11.22 Type 2 diabetes mellitus with diabetic chronic kidney disease; E11.65 Type 2 diabetes mellitus with hyperglycemia; D63.8 Anemia in other chronic diseases classified elsewhere; E87.5 Hyperkalemia; Z79.4 Long term (current) use of insulin; Z91.15 Patient's noncompliance with renal dialysis; E88.09 Other disorders of plasma-protein metabolism, not elsewhere classified; Z68.30 Body mass index [BMI] 30.0-30.9, adult; Z91.81 History of falling; E11.51 Type 2 diabetes mellitus with diabetic peripheral angiopathy without gangrene; E11.40 Type 2 diabetes mellitus with diabetic neuropathy, unspecified; E87.70 Fluid overload, unspecified; Z79.82 Long term (current) use of aspirin
CPT/HCPCS: 36415; 70450-TC; 71045-TC; 73630-TC; 80048-TC; 80061-TC; 80076-TC; 80202-TC; 82010-TC; 82962-TC; 83605-TC; 83735-TC; 84100-TC; 84443-TC; 84484-TC; 85025-TC; 86706; 87040-TC; 87081-TC; 87340; 90935-TC; A4216; A6248; A6253; A6403; G0378; J0696; J1815; J3370; J7030; J7050; J7060

== ENCOUNTER 2019-04-20 12:53 | Inpatient (IN) | payer OTHER ==
[~2019-04-20] VITALS: Ht 157.5 cm; Wt 88.5 kg
[~2019-04-20 12:53] MED LIST changes: -ASPI-1152 PO; +CALC-7 PO; +CHOL200026 PO; +FOLI0.8T2 PO; -LEVO500T75 PO; -METR500T PO; +OMEG1CAP PO; -OMEP20CA15 PO; +TURM500C9 PO
--- NOTE | 2019-04-20 13:10 | NUR ---
wiley, c/o left leg and rib pain x 10 days, denies injury/trauma. Patient a/ox4, breathing even and unlabored, no sob noted, needs attended, kept comfortable.
[2019-04-20] MEDS ORDERED: ONDANSETRON HCL/PF 4 MG/2 ML VIAL ONE (13:28)
[2019-04-20] MEDS ORDERED: MORPHINE SULFATE INJ 2 MG/ML DISP.SYRIN ONE (13:28)
[2019-04-20] MEDS ORDERED: MORPHINE SULFATE INJ 2 MG/ML DISP.SYRIN IV ONE (13:30)
[2019-04-20] MEDS ORDERED: IV NS 0.9% 500 ML BAG IV ONE (13:30)
[2019-04-20] MEDS ORDERED: ONDANSETRON HCL/PF 4 MG/2 ML VIAL IVP ONE (13:30)
[2019-04-20 14:11] LABS: BASOPHILS # (AUTO) 0.1 /CMM (0.0-0.2); BASOPHILS % (AUTO) 0.6 % (0.0-2.0); EOSINOPHILS % (AUTO) 1.9 % (0.0-6.0); HEMATOCRIT 36 % (33-45); HEMOGLOBIN 11.6 g/dL (11.5-14.8); LYMPHOCYTES # (AUTO) 1.6 /CMM (0.8-4.8); LYMPHOCYTES % (AUTO) 17.3 % (20.0-44.0); MEAN CORPUSCULAR HGB CONC 33 g/dl (31.0-36.0); MEAN CORPUSCULAR VOLUME 96 fL (82-100); MONOCYTES # (AUTO) 0.7 /CMM (0.1-1.30); MONOCYTES % (AUTO) 7.7 % (2.0-12.0); NEUTROPHILS # (AUTO) 6.6 /CMM (1.8-8.9); NEUTROPHILS % (AUTO) 72.5 % (43.0-81.0); PLATELET COUNT (AUTO) 265 /CMM (150-450); WHITE BLOOD COUNT (AUTO) 9.2 K/uL (4.3-11.0)
[2019-04-20 14:23] LABS: CARBON DIOXIDE 28 mmol/L (21-32); CHLORIDE 102 mmol/L (98-107); CREATININE 6.7 mg/dL (0.6-1.3); GLUCOSE 217 mg/dL (74-106); POTASSIUM 4.7 mmol/L (3.5-5.1); SODIUM SERUM 139 mmol/L (136-145); UREA NITROGEN, BLOOD 33 mg/dL (7-18)
[2019-04-20 14:39] LABS: ALANINE AMINOTRANSFERASE 19 U/L (12-78); ALBUMIN 2.5 g/dL (3.4-5.0); ALKALINE PHOSPHATASE 91 U/L (46-116); ASPARTATE AMINOTRANSFERASE 19 U/L (15-37); BILIRUBIN,DIRECT 0.1 mg/dL (0.0-0.2); BILIRUBIN,TOTAL 0.5 mg/dL (0.2-1.0); TOTAL PROTEIN, SERUM 7.6 g/dL (6.4-8.2)
[2019-04-20] MEDS ORDERED: MEROPENEM 500 MG in IV NS 0.9% 50 ML IV ONE (15:00)
--- NOTE | 2019-04-20 15:07 | NUR ---
CALLED NURSING SUP FOR M/S BED.
[2019-04-20] MEDS ORDERED: VANCOMYCIN 1.25 GM in IV D5W 250 ML IV ONE (16:00)
--- NOTE | 2019-04-20 16:00 | NUR ---
PAGED [facility].
--- NOTE | 2019-04-20 16:08 | NUR ---
NURSING SUP GAVE M/S BED 321-2.
--- NOTE | 2019-04-20 16:18 | NUR ---
REPORT GIVEN TO ELIAN MAYERS .
--- NOTE | 2019-04-20 16:30 | NUR ---
PATIENT TRANSFERRED TO ROOM 321-2 IN STABLE CONDITION, FAMILY AT BEDSIDE. DR. AUGUSTE SEEN AND EXAMINED PATIENT IN ER.
--- NOTE | 2019-04-20 16:30 | NUR ---
WOUND CULTURE FOR LEFT FOOT SENT
--- NOTE | 2019-04-20 16:45 | NUR ---
Admitting Note Received report by JERRY/Carolin MAYERS, patient arrived on gurney accompanied by family, AO x 4, able to responds all stimuli. Admitting Dx left foot diabetic ulcer. Skin is warm to touch, wound picture taken, Pt is HD and intact fistula on right chest . Respiratory even and unlabored, no distress or SOB absorbed. Will continue to monitor.
[2019-04-20] MEDS ORDERED: ONDANSETRON HCL/PF 4 MG/2 ML VIAL IVP PRN (17:30)
[2019-04-20] MEDS ORDERED: MAG HYDROX/AL HYDROX/SIMETH 30 ML UDC PO PRN (17:30)
[2019-04-20] MEDS ORDERED: FEE PK DOSING 1 MIN EA MC ONE (17:30)
[2019-04-20] MEDS ORDERED: DEXTROSE 50%-WATER 50 ML DISP.SYRIN IV PRN (17:30)
[2019-04-20] MEDS ORDERED: ACETAMINOPHEN 325 MG TABLET PO PRN (17:30)
[2019-04-20] MEDS ORDERED: Z GUARD REMEDY 2 OZ OINT TP PRN (17:30)
[2019-04-20] MEDS ORDERED: MAGNESIUM HYDROXIDE 30 ML UDC PO PRN (17:30)
[2019-04-20] MEDS: BLOOD SUGAR DIAGNOSTIC 1 EACH STRIP VI SCH ×2 (18:29→21:48)
--- NOTE | 2019-04-20 18:45 | NUR ---
MS/RN Closing NOTe Patient stay on bed comfortably, family member at bed side. No s/s adverse reaction observed from ATB, skin is warm to touch, clean/dry, changed left foot wound dressing. Respiration even and unlabored with room air. Keep lower position of bed with elevated HOB. Call light within reach, will endorse night time babysitter.
[2019-04-20 20:00] VITALS: BP 153/86
--- NOTE | 2019-04-20 20:15 | NUR ---
MS RN NOTES PATIENT AWAKE IN BED WITH NO DISTRESS NOTED. CALL LIGHT WITHIN REACH. PERIPHERAL LINE INTACT AND PATENT. NO C/O PAIN OR DISCOMFORT. BED IN LOW LOCK SETTING WITH BED ALARM ON AND FUNCTIONING PROPERLY. ENCOURAGED USE OF CALL LIGHT AND DEMONSTRATED GOOD UNDERSTANDING. WILL CONTINUE TO MONITOR.
[2019-04-20] MEDS: *INSULIN REGULAR(HUMULIN R)HUM 100 UNIT/ML VIAL SQ PRN (21:48)
[2019-04-21] MEDS: INSULIN REGULAR, HUMAN 100 UNIT/ML 3 ML VIAL SQ PRN ×2 (06:19→11:44)
--- NOTE | 2019-04-21 06:34 | NUR ---
MS RN NOTES PATIENT AWAKE IN BED WITH NO DISTRESS NOTED. CALL LIGHT WITHIN REACH. ALL DUE MEDS GIVEN ORDERED WITH NO ASE. NO C/O PAIN OR DISCOMFORT. PERIPHERAL LINES INTACT AND PATENT. RUC P.CATH IN PLACE WITH NO REDNESS, SWELLING, BLEEDING NOTED. STERILE DRESSING INTACT. BED IN LOW LOCK SETTING WITH BED ALARM ON AND FUNCTIONING PROPERLY. WILL ENDORSE TO ONCOMING SHIFT.
[2019-04-21 06:52] LABS: BASOPHILS # (AUTO) 0.1 /CMM (0.0-0.2); BASOPHILS % (AUTO) 0.7 % (0.0-2.0); EOSINOPHILS % (AUTO) 2.2 % (0.0-6.0); HEMATOCRIT 32 % (33-45); HEMOGLOBIN 10.5 g/dL (11.5-14.8); LYMPHOCYTES # (AUTO) 2.3 /CMM (0.8-4.8); LYMPHOCYTES % (AUTO) 18.1 % (20.0-44.0); MEAN CORPUSCULAR HGB CONC 32 g/dl (31.0-36.0); MEAN CORPUSCULAR VOLUME 97 fL (82-100); MONOCYTES # (AUTO) 0.9 /CMM (0.1-1.30); RED BLOOD CELL COUNT(AUTO) 3.34 MIL/uL (4.0-5.2); WHITE BLOOD COUNT (AUTO) 12.6 K/uL (4.3-11.0)
[2019-04-21 06:57] LABS: CALCIUM, SERUM 8.3 mg/dL (8.5-10.1); CARBON DIOXIDE 24 mmol/L (21-32); CHLORIDE 100 mmol/L (98-107); CREATININE 7.2 mg/dL (0.6-1.3); GLUCOSE 184 mg/dL (74-106); PHOSPHORUS 5.9 mg/dL (2.5-4.9); SODIUM SERUM 134 mmol/L (136-145); UREA NITROGEN, BLOOD 38 mg/dL (7-18)
[2019-04-21 07:00] LABS: PLATELET COUNT (AUTO) 248 /CMM (150-450)
[2019-04-21] MEDS: BLOOD SUGAR DIAGNOSTIC 1 EACH STRIP VI SCH ×4 (07:33→21:11)
[2019-04-21 08:00] VITALS: BP 166/79
--- NOTE | 2019-04-21 10:41 | NUR ---
WOUND CARE CONSULT: PT PRESENTS WITH WOUNDS TO LEFT FOOT AND CALLUS TO LEFT HEEL WELL RASHES WITH SKIN DISCOLORATION TO BUTTOCKS, PERINEUM AND GROIN FOLDS, PRESENT ON ADMISSION. DR GRUBBS NOTIFIED OF DPM CONSULT REQUEST. RECOMMENDATIONS MADE FOR SKIN CARE AND PROTECTION. DISCUSSED WITH NURSING STAFF. PT ON BERRY ISOFLEX LOW AIRLOSS BED. WILL SEE PRN. DEFER TO DPM FOR LOWER EXTREMITY WOUNDS. IN AGREEMENT WITH PLAN OF CARE. Addendum: 04/21/19 at 1043 by NICA MOREAU WNDNU Amended: Links added.
--- NOTE | 2019-04-21 11:00 | NUR ---
Received call from dr. Harry : new orders placed -NPO after midnight -Consent for AV fistula placement to the left arm -BMP in am -B/LAE vein Doppler
--- NOTE | 2019-04-21 14:00 | NUR ---
Med recon has not done. Dr. Weir made aware.
[2019-04-21] MEDS: CLOTRIMAZOLE 1% 15 GM TUBE TP SCH (14:12)
[2019-04-21 16:00] VITALS: BP 172/95
--- NOTE | 2019-04-21 16:00 | NUR ---
Bedside dialysis started, patient in stable condition
--- NOTE | 2019-04-21 18:53 | NUR ---
Patient remains in stable condition . Bedside HD finishing with 1200 ml output. Dressing changed. Patient scheduled for L arm fistula placement for tomorrow . Consent sighed by patient. PAtient NPO status after midnight. Patient post debridement L foot , dressing clean and dry. All needs attended. Will endorse to next shift for GONZALO.
[2019-04-21 20:00] VITALS: BP 128/78
--- NOTE | 2019-04-21 20:00 | NUR ---
MS/RN OPENING NOTES RECEIVED PATIENT IN BED, AWAKE, ALERT X3, ABLE TO RESPOND TO NEEDS, VERBALIZE NEEDS, HAD DIALYSIS EARLIER WITH 1.2LITER OUT. PATIENT ON ROOM AIR, RESPIRATIONS EVEN AND UNLABORED, NPO AFTER MIDNIGHT FOR PROCEDURE BY DR MERRILL FOR AV FISTULA LEFT ARM PLACEMENT, CONSENT HAS BEEN SIGNEDM TO PREPARE CHECKLIST. NOT GIVEN VANCO VANCO TROUGH ELEVATED TO 27. HAD WOUND DEBRIDEMENT AND WITH WOUND TREATMENT ORDER TO USE HYDROGEL.WILL MONITOR.BED LOCKEC, CALL LIGHTS WITHIN REACH.
[2019-04-21] MEDS: *INSULIN REGULAR(HUMULIN R)HUM 100 UNIT/ML VIAL SQ PRN (21:23)
--- NOTE | 2019-04-21 21:29 | NUR ---
MS/RN NOTES BLOOD SUGAR AT 219, PATIENT ALERT ORIENTED REQUESTED FOR SOME JELLOW AFTER INSULIN GIVEN OF 4 UNITS.
[2019-04-22] MEDS: BLOOD SUGAR DIAGNOSTIC 1 EACH STRIP VI SCH ×4 (05:55→23:06)
--- NOTE | 2019-04-22 06:12 | NUR ---
321-2 MS/RN NOTES PATIENT ABLE TO SLEEP DURING THE NIGHT, ATTENDED TO ALL NEEDS, ASSITED. BED LOCKED, CALL LIGHTS WITHIN REACH. WILL ,MONITOR ANY CHANGES.
[2019-04-22 07:02] LABS: CALCIUM, SERUM 9.4 mg/dL (8.5-10.1); CARBON DIOXIDE 25 mmol/L (21-32); CHLORIDE 104 mmol/L (98-107); CREATININE 5.4 mg/dL (0.6-1.3); GLUCOSE 255 mg/dL (74-106); POTASSIUM 5.1 mmol/L (3.5-5.1); SODIUM SERUM 137 mmol/L (136-145); UREA NITROGEN, BLOOD 25 mg/dL (7-18)
[2019-04-22 08:00] VITALS: BP 145/93
--- NOTE | 2019-04-22 08:17 | NUR ---
MS RN OPENING NOTES RECEIVED PATIENT IN BED, ASLEEP. PATIENT BREATHING ON ROOM AIR. BREATHING NORMAL, NON-LABORED. L HAND GAUGE # 20 SL PRESENT AND INTACT. SAFETY PRECAUTIONS IN PLACE; BED LOW AND LOCKED, RAILS UP X2, CALL LIGHT WITHIN REACH. WILL CONTINUE TO MONITOR PATIENT.
[2019-04-22] MEDS: HYDROGEL DRESSING 90 GM TUBE TP SCH (09:30)
[2019-04-22] MEDS: CLOTRIMAZOLE 1% 15 GM TUBE TP SCH ×2 (09:34→17:49)
[2019-04-22] MEDS ORDERED: LIDOCAINE HCL/MPF 1% 30 ML VIAL IJ ONE (10:00)
[2019-04-22] MEDS ORDERED: MIDAZOLAM HCL 2 MG/2ML VIAL ONE (11:26)
[2019-04-22] MEDS ORDERED: DESFLURANE 240 ML BOTTLE IH ONE (11:27)
[2019-04-22] MEDS ORDERED: CLINDAMYCIN 900 MG/6 ML VIAL ONE (13:23)
[2019-04-22] MEDS ORDERED: CELLULOSE,OXIDIZED 1 EA PACK MC ONE (14:25)
[2019-04-22 16:00] VITALS: BP 138/78
[2019-04-22 16:00] LABS: CALCIUM, SERUM 8.8 mg/dL (8.5-10.1); CARBON DIOXIDE 25 mmol/L (21-32); CHLORIDE 104 mmol/L (98-107); CREATININE 5.8 mg/dL (0.6-1.3); GLUCOSE 247 mg/dL (74-106); POTASSIUM 5.5 mmol/L (3.5-5.1); SODIUM SERUM 138 mmol/L (136-145); UREA NITROGEN, BLOOD 29 mg/dL (7-18)
--- NOTE | 2019-04-22 16:00 | NUR ---
MS RN NOTES PATIENT CAME BACK FROM PROCEDURE IN STABLE CONDITION. ON OXYGEN THERAPY PER NASAL CANULA AT 2 LPM. AOX3. PER LAB HER POTASSIUM IS AT 5.5. MD NOTIFIED. PER MD ORDER PREVIOUS DIET WAS INITIATED AND PRESCRIBED MEDICATION. WILL CONTINUE TO MONITOR PATIENT.
[2019-04-22 16:12] LABS: BASOPHILS # (AUTO) 0.1 /CMM (0.0-0.2); BASOPHILS % (AUTO) 0.7 % (0.0-2.0); EOSINOPHILS % (AUTO) 1.3 % (0.0-6.0); HEMATOCRIT 31 % (33-45); HEMOGLOBIN 9.8 g/dL (11.5-14.8); LYMPHOCYTES # (AUTO) 1.6 /CMM (0.8-4.8); MEAN CORPUSCULAR HGB CONC 32 g/dl (31.0-36.0); MEAN CORPUSCULAR VOLUME 98 fL (82-100); MONOCYTES # (AUTO) 0.3 /CMM (0.1-1.30); MONOCYTES % (AUTO) 3.9 % (2.0-12.0); NEUTROPHILS % (AUTO) 74.1 % (43.0-81.0); PLATELET COUNT (AUTO) 225 /CMM (150-450); RED BLOOD CELL COUNT(AUTO) 3.11 MIL/uL (4.0-5.2); WHITE BLOOD COUNT (AUTO) 8.1 K/uL (4.3-11.0)
[2019-04-22] MEDS: INSULIN REGULAR, HUMAN 100 UNIT/ML 3 ML VIAL SQ PRN (17:45)
--- NOTE | 2019-04-22 19:24 | NUR ---
MS RN CLOSING NOTES PATIENT IN BED, WATCHING TV, A/O X 4. PATIENT BREATHING ON ROOM AIR. BREATHING NORMAL, NON-LABORED. R HAND GAUGE # 20 PRESENT AND INTACT. NEW AV FISTULA PLACED ON LEFT UPPER ARM. PROCEDURE TOLERATED WELL. PER MD PATIENT ALLOWED TO RESUME PREVIOUS DIET AND MEDICATIONS. SAFETY PRECAUTIONS IN PLACE; BED LOW AND LOCKED, RAILS UP X2, CALL LIGHT WITHIN REACH. WILL ENDORSE TO PROSTHETIC LAB TECHNICIAN NURSE.
[2019-04-22 20:00] VITALS: BP 150/82
[2019-04-22] MEDS: *INSULIN REGULAR(HUMULIN R)HUM 100 UNIT/ML VIAL SQ PRN (23:13)
[2019-04-23] MEDS: BLOOD SUGAR DIAGNOSTIC 1 EACH STRIP VI SCH ×4 (07:01→21:53)
[2019-04-23] MEDS: INSULIN REGULAR, HUMAN 100 UNIT/ML 3 ML VIAL SQ PRN ×4 (07:01→22:58)
--- NOTE | 2019-04-23 07:25 | NUR ---
RN OPENING NOTES RECEIVED PATIENT IN BED RESTING. NOT IN ANY FORM OF DISTRESS. NO SOB. DENIED PAIN OR DISCOMFORT AT THIS TIME. IV ACCES INTACT AND PATENT. NO REDNESS, NO INFILTRATION. NOTED WITH RIGHT CW HD CATH WITH C/D/I DRESSING, AND ELIA AV SHUNT NOTED WITH C/D/I DRESSING. KEPT PATIENT SAFE AND COMFORTABLE. BED IN LOW, LOCKED POSITION, SIDERAILS UPX2,CALL LIGHT IN REACH. WILL CONT TO MONITOR ACCORDINGLY.
[2019-04-23 07:55] VITALS: BP 147/78
--- NOTE | 2019-04-23 08:00 | NUR ---
rn notes patient refused skin assessment. patient stated "NO" when nurse asked to check her groin and buttocks. reminded patient to turn and reposition to avoid further skin breakdown. patient verbalized understanding, patient said "Yes" when asked if she understood.
[2019-04-23] MEDS: HYDROGEL DRESSING 90 GM TUBE TP SCH (08:58)
[2019-04-23] MEDS: CLOTRIMAZOLE 1% 15 GM TUBE TP SCH ×2 (08:58→16:53)
[2019-04-23 16:00] VITALS: BP 136/74
[2019-04-23] MEDS: HYDROCODONE/APAP 5/325MG 1 EACH TABLET PO PRN (16:51)
--- NOTE | 2019-04-23 19:30 | NUR ---
RN CLOSING NOTES PATIENT IN STABLE CONDITION. ALL NEED ATTENDED AND PROVIDED. ALL DUE MEDICATIONS GIVEN ORDERED. KEPT PATIENT SAFE AND COMFORTABLE. TURNED AND REPOSITIONED PATIENT EVERY 2HRS AND NEEDED. WOUND CARE RENDERED. BED IN LOW/LOCKED POSITION, SIDERAILS UPX2, CALL LIGHT IN REACH. ENDORSED ACCORDINGLY.
--- NOTE | 2019-04-23 19:50 | NUR ---
MS RN OPENING NOTES PATIENT AWAKE, A/OX2; ARMENIAN SPEAKER; SON AT BEDSIDE; PATIENT REPORTED TO BE DOING WELL; BREATHING EVEN AND UNLABORED; PATIENT ON 2L NC, TOLERATING WELL; NO S/S OF ACUTE RESPIRATORY DISTRESS NOTED; R HAND #20 SL; INTACT AND PATENT; FLUSHING WELL, NO S/S OF REDNESS OR INFILTRATION; PATIENT HAS RIGHT UPPER CHEST PERMACATH; LLA AV SHUNT INTACT; NO S/S OF REDNESS; L FOOT STAGE 2 ULCER NOTED; BED LOCKED IN LOW POSITION; BILATERAL SIDE RAILS X2; SAFETY PRECAUTIONS IN PLACE; CALL LIGHT WITHIN REACH; WILL CONTINUE TO MONITOR
[2019-04-23 20:00] VITALS: BP 145/78
[2019-04-23 20:34] VITALS: BP 145/78
[2019-04-24] MEDS: INSULIN REGULAR, HUMAN 100 UNIT/ML 3 ML VIAL SQ PRN ×2 (05:52→17:31)
--- NOTE | 2019-04-24 06:27 | NUR ---
MS CLOSING NOTES PATIENT AWAKE, A/O X2; LATVIAN SPEAKER; PATIENT BREATHING EVEN AND UNLABORED; NO S/S OF ACUTE RESPIRATORY DISTRESS NOTED; PATIENT TOLERATING 2L NC WELL; R HAND #20 INTACT AND PATENT; FLUSHING WELL; NO S/S OF REDNESS OR INFILTRATION NOTED; HEMODIALYSIS DONE 04/23/19; PATIENT TOLERATED DIALYSIS WELL; RU CHEST PERMACATH AND LLA AV SHUNT BOTH INTACT; NO S/S OF REDNESS; SAFETY PRECAUTIONS IN PLACE; BED LOCKED IN LOW POSITION; BILATERAL UPPER SIDE RAILS X2; CALL LIGHT WITHIN EASY REACH; WILL ENDORSE CONTINUITY OF CARE TO ONCOMING SHIFT
[2019-04-24 08:00] VITALS: BP 132/71
[2019-04-24] MEDS: BLOOD SUGAR DIAGNOSTIC 1 EACH STRIP VI SCH ×4 (08:52→22:00)
[2019-04-24] MEDS: HYDROGEL DRESSING 90 GM TUBE TP SCH (08:53)
[2019-04-24] MEDS: CLOTRIMAZOLE 1% 15 GM TUBE TP SCH ×2 (08:53→17:32)
[2019-04-24] MEDS: *INSULIN REGULAR(HUMULIN R)HUM 100 UNIT/ML VIAL SQ PRN ×3 (12:06→21:18)
[2019-04-24 12:40] LABS: BASOPHILS % (AUTO) 0.4 % (0.0-2.0); EOSINOPHILS % (AUTO) 0.7 % (0.0-6.0); HEMATOCRIT 28 % (33-45); LYMPHOCYTES # (AUTO) 2.2 /CMM (0.8-4.8); LYMPHOCYTES % (AUTO) 20.8 % (20.0-44.0); MEAN CORPUSCULAR HGB CONC 33 g/dl (31.0-36.0); MEAN CORPUSCULAR VOLUME 97 fL (82-100); MONOCYTES # (AUTO) 1.1 /CMM (0.1-1.30); MONOCYTES % (AUTO) 10.1 % (2.0-12.0); NEUTROPHILS # (AUTO) 7.2 /CMM (1.8-8.9); PLATELET COUNT (AUTO) 205 /CMM (150-450); RED BLOOD CELL COUNT(AUTO) 2.88 MIL/uL (4.0-5.2); WHITE BLOOD COUNT (AUTO) 10.5 K/uL (4.3-11.0)
[2019-04-24 13:15] LABS: CALCIUM, SERUM 8.6 mg/dL (8.5-10.1); CARBON DIOXIDE 26 mmol/L (21-32); CHLORIDE 102 mmol/L (98-107); CREATININE 5.3 mg/dL (0.6-1.3); GLUCOSE 257 mg/dL (74-106); PHOSPHORUS 4.8 mg/dL (2.5-4.9); POTASSIUM 5.1 mmol/L (3.5-5.1); SODIUM SERUM 137 mmol/L (136-145); UREA NITROGEN, BLOOD 35 mg/dL (7-18)
[2019-04-24 16:00] VITALS: BP_SYST 144; BP_DIAS 64; BP_DIAS 69
[2019-04-24] MEDS: VANCOMYCIN POST DIALYSIS 500MG IV PRN ×4 (18:45→18:46)
[2019-04-24 20:00] VITALS: BP 134/71
[2019-04-24] MEDS: HYDROCODONE/APAP 5/325MG 1 EACH TABLET PO PRN (21:10)
--- NOTE | 2019-04-25 03:00 | NUR ---
PATIENT VOIDED IN BED,CLEANSED AND DRIED. BUTTOCKS, GROIN FOLDS AND PERINEAL RASHES CLEANSED WITH SOAP AND WATER AND DRIED, AND APPLIED LOTRIMIN CREAM TO THE AREAS. PATIENT WANTS TO HAVE DIAPER ON.
--- NOTE | 2019-04-25 03:31 | NUR ---
RN NOTES REPORT GIVEN BY RIANA SABA. PATIENT TRANSFERRED FROM 321-2 TO 208-2, DENIES ANY PAIN, NO SIGNS OF ACUTE DISTRESS NOTED, SAFETY MEASURES IN PLACE, LEFT ARM AV SHUNT AND RIGHT UPPER CHEST PERMA CATH SECURED AND INTACT. PERIPHERAL IV ACCESS ON HER RIGHT HAND OUT UPON RECEIVING FROM TRANSFER. ALL NEEDS ATTENDED, BED IN LOW LOCKED POSITION, CALL LIGHT WITHIN EASY REACH, WILL CONTINUE TO MONITOR ACCORDINGLY.
--- NOTE | 2019-04-25 03:49 | NUR ---
REPORTS GIVEN TO MAURILIO MAYERS FOR GONZALO OF CARE.
--- NOTE | 2019-04-25 03:53 | NUR ---
PATIENT IS ON AIR MATTRESS AND SCD'S. PHOTO OF THE LEFT FOOT FOR THE NEXT DRESSING CHANGE- NOT DONE YET, ENDORSED TO MAURILIO MAYERS. LEFT SURGICAL SHOE IS NOT AVAILABLE YET NEEDS TO BE FOLLOWED UP TODAY, ENDORSED.
--- NOTE | 2019-04-25 06:31 | NUR ---
RN NOTES ALL NEEDS ATTENDED AND MET, ABLE TO REST AND SLEPT AT INTERVALS, SAFETY MEASURES IN PLACE, REPOSITIONED FOR COMFORT, CALL LIGHT WITHIN EASY REACH, WILL ENDORSE TO AM NURSE FOR CONTINUITY OF CARE.
[2019-04-25] MEDS: BLOOD SUGAR DIAGNOSTIC 1 EACH STRIP VI SCH ×4 (07:17→22:33)
[2019-04-25] MEDS: INSULIN REGULAR, HUMAN 100 UNIT/ML 3 ML VIAL SQ PRN ×3 (07:17→17:20)
[2019-04-25 07:45] LABS: CARBON DIOXIDE 24 mmol/L (21-32); CHLORIDE 101 mmol/L (98-107); GLUCOSE 209 mg/dL (74-106); MAGNESIUM 1.9 mg/dL (1.8-2.4); PHOSPHORUS 5.8 mg/dL (2.5-4.9); POTASSIUM 5.2 mmol/L (3.5-5.1); SODIUM SERUM 135 mmol/L (136-145); UREA NITROGEN, BLOOD 41 mg/dL (7-18)
[2019-04-25] MEDS: HYDROGEL DRESSING 90 GM TUBE TP SCH (07:57)
[2019-04-25] MEDS: CLOTRIMAZOLE 1% 15 GM TUBE TP SCH ×2 (07:57→17:16)
[2019-04-25 08:00] VITALS: BP 134/72
[2019-04-25 09:24] LABS: BASOPHILS % (AUTO) 0.6 % (0.0-2.0); EOSINOPHILS % (AUTO) 1.7 % (0.0-6.0); HEMATOCRIT 29 % (33-45); HEMOGLOBIN 9.3 g/dL (11.5-14.8); LYMPHOCYTES # (AUTO) 1.9 /CMM (0.8-4.8); LYMPHOCYTES % (AUTO) 23.5 % (20.0-44.0); MEAN CORPUSCULAR HGB CONC 32 g/dl (31.0-36.0); MEAN CORPUSCULAR VOLUME 97 fL (82-100); MONOCYTES # (AUTO) 0.8 /CMM (0.1-1.30); MONOCYTES % (AUTO) 9.7 % (2.0-12.0); NEUTROPHILS # (AUTO) 5.2 /CMM (1.8-8.9); NEUTROPHILS % (AUTO) 64.5 % (43.0-81.0); PLATELET COUNT (AUTO) 213 /CMM (150-450); RED BLOOD CELL COUNT(AUTO) 2.95 MIL/uL (4.0-5.2); WHITE BLOOD COUNT (AUTO) 8.1 K/uL (4.3-11.0)
--- NOTE | 2019-04-25 12:00 | NUR ---
MS/RN Blood sugar Blood sugar 156, insulin coverage administered as per sliding scale.
[2019-04-25] MEDS: VANCOMYCIN POST DIALYSIS 500MG IV PRN ×2 (12:56)
--- NOTE | 2019-04-25 13:35 | NUR ---
MS/RN Estelao level Vanco level pre dialysis 19, today's dose to be administered.
--- NOTE | 2019-04-25 13:37 | NUR ---
MS/RN HD completed HD completed, 2.5l removed, vital signs remained stable throughout procedure.
--- NOTE | 2019-04-25 13:39 | NUR ---
MS/RN Patient received Patient received from writer editor. Sleeping soundly at this time, appears in no distress or discomfort. Call light within reach, bed in low setting, side rails X3 in upright position. Will continue to monitor and ensure safety. Addendum: 04/25/19 at 1827 by AISHWARYA SZYMANSKI note should be timed [id number]
[2019-04-25 16:00] VITALS: BP 135/71
--- NOTE | 2019-04-25 18:27 | NUR ---
MS/RN End note Patient remains in stable condition. All needs attended. Dressing to be changed with next dressing change. Will endorse to client care coordinator.
--- NOTE | 2019-04-25 19:10 | NUR ---
MS RN NOTES RECEIVED PT IN BED AWAKE AND ABLE TO MAKE NEEDS KNOWN WITH FAMILY AT BEDSIDE. PT A/O X3. RESPIRATIONS EVEN AND UNLABORED WITH NO S/S OF ACUTE DISTRESS OR SOB NOTED. PT NOTED WITH LFOOT DRESSING AWAITING FIRST DRESSING CHANGE. PT NOTED WITH RFA #22G PATENT AND INTACT AND SL. NO COMPLAINTS OF PAIN AT THIS TIME. SAFETY MEASURES IN PLACE WITH BED IN LOWEST LOCKED POSITION WITH SIDE RAILS UP X2. CALL LIGHT WITHIN REACH. WILL CONTINUE TO MONITOR.
[2019-04-25 20:00] VITALS: BP 139/72
[2019-04-25] MEDS: *INSULIN REGULAR(HUMULIN R)HUM 100 UNIT/ML VIAL SQ PRN (22:35)
--- NOTE | 2019-04-26 07:57 | NUR ---
MS RN NOTES RECEIVED PT IN BED AWAKE AND ABLE TO MAKE NEEDS KNOWN. PT A/O X3. RESPIRATIONS EVEN AND UNLABORED WITH NO S/S OF ACUTE DISTRESS OR SOB NOTED THROUGHOUT SHIFT. PT NOTED WITH LFOOT DRESSING AWAITING FIRST DRESSING CHANGE. PT NOTED WITH RFA #22G PATENT AND INTACT AND SL. PT KEPT CLEAN, DRY, AND COMFORTABLE. NO COMPLAINTS OF PAIN AT THIS TIME. SAFETY MEASURES IN PLACE WITH BED IN LOWEST LOCKED POSITION WITH SIDE RAILS UP X2. CALL LIGHT WITHIN REACH. WILL ENDORSE TO ONCOMING NURSE FOR GONZALO.
[2019-04-26 08:00] VITALS: BP 142/78
--- NOTE | 2019-04-26 08:00 | NUR ---
RN NOTES RECEIVED PATIENT IN THE ROOM A/O X2/3 CZECH SPEAKER. BS-260 MG/DL COVERAGE GIVEN. PATIENT HAS NO ACUTE RESPIRATORY DISTRESS, V/S WNL. PATIENT REFUSED PAIN, HD SHUNT ON LEFT AC AREA INTACT, PATIENT TOTAL CARE, INCONTINENT, NEEDS ATTENDED AND ANTICIPATED. CALL LIGHT WITHIN TO REACH,. SAFETY PRECAUTION MAINTAINED ALL THE TIME.
[2019-04-26] MEDS: BLOOD SUGAR DIAGNOSTIC 1 EACH STRIP VI SCH ×4 (08:59→21:33)
[2019-04-26] MEDS: INSULIN REGULAR, HUMAN 100 UNIT/ML 3 ML VIAL SQ PRN ×3 (09:05→17:05)
[2019-04-26] MEDS: HYDROGEL DRESSING 90 GM TUBE TP SCH (09:06)
[2019-04-26] MEDS: CLOTRIMAZOLE 1% 15 GM TUBE TP SCH ×2 (09:07→17:06)
--- NOTE | 2019-04-26 13:00 | NUR ---
RN NOTES BS-272 MG/DL, COVERAGE GIVEN, PATIENT EATING LUNCH, FAMILY NEXT TO THE BED. SAFETY PRECAUTION MAINTAINED ALL THE TIME.
[2019-04-26 16:00] VITALS: BP 151/75
--- NOTE | 2019-04-26 17:06 | NUR ---
RN NOTES BS-215 MG /DL COVERAGE GIVEN, ALSO ADMINISTERED TYLENOL 650 MG PO PRN FOR LEFT ARM PAIN, CONTINUED MONITORING. SON NEXT TO THE BED. ELEVATED LEFT LEG USING PILLOW, ASSIST TURN ANS REPOSTION Q 2 HR.
--- NOTE | 2019-04-26 18:00 | NUR ---
RN NOTES PATIENT WATCHING TV, ADMINISTERED SCHEDULED MEDICATION, MEDICATION WERE ADMINISTERED FOR PAIN EFFECTIVE. SON NEXT TO THE BED. CALL LIGHT WITHIN TO REACH. ENDORSED ONCOMING NURSE FOLLOW PLAN OF CARE.
--- NOTE | 2019-04-26 19:20 | NUR ---
MS RN OPENING NOTES Received patient, awake on bed. On RA, no SOB/respiratory distress noted, no s/sx of discomfort noted at this time. Kept on bed clean, dry and comfortable. On fall and aspiration precautions. Call light within easy reach. Will continue to monitor accordingly.
[2019-04-26 20:00] VITALS: BP 148/73
[2019-04-26 20:46] VITALS: BP 148/73
[2019-04-26] MEDS: *INSULIN REGULAR(HUMULIN R)HUM 100 UNIT/ML VIAL SQ PRN (21:51)
[2019-04-27] MEDS: INSULIN REGULAR, HUMAN 100 UNIT/ML 3 ML VIAL SQ PRN ×2 (06:44→12:44)
[2019-04-27] MEDS: BLOOD SUGAR DIAGNOSTIC 1 EACH STRIP VI SCH ×2 (06:45→11:55)
--- NOTE | 2019-04-27 06:57 | NUR ---
MS RN CLOSING NOTES Patient asleep on Ren's position on bed. On RA, no SOB/respiratory distress noted at this time. No new complaints made. All nursing needs attended, due meds given as ordered. Wound dressing done, patient able to tolerate the procedure well. Kept on bed clean, dry and comfortable. Call light within easy reach. On fall and aspiration precautions. Endorsed.
[2019-04-27 08:00] VITALS: BP 168/93
--- NOTE | 2019-04-27 08:00 | NUR ---
RN NOTES RECEIVED PATIENT IN THE BED AWAKE, A/O X3 UKRAINIAN SPEAKER, PATIENT HAS NO ACUTE RESPIRATORY DISTRESS, V/S STABLE, N REFUSED PAIN. STARTED HEMODIALYSIS AT THIS TIME BY HEMODIALYSIS NURSE MARICHUY MAYERS. CONTINUED MONITORING.
[2019-04-27] MEDS: HYDROGEL DRESSING 90 GM TUBE TP SCH (10:03)
[2019-04-27] MEDS: CLOTRIMAZOLE 1% 15 GM TUBE TP SCH (10:03)
--- NOTE | 2019-04-27 10:04 | NUR ---
RN NOTES HEMODIALYSIS FINISHED AT THIS TIME, OUTPUT WAS 2L PER DIALYSIS NURSE, BP 166/90, P-100. CALL MED FOR RECONCILIATION OF HOME MEDICATION.
[2019-04-27] MEDS ORDERED: METO25TA6 PO (12:21)
[2019-04-27] MEDS ORDERED: METOPROLOL TARTRATE 25 MG TABLET PO SCH (12:30)
[2019-04-27] MEDS ORDERED: CLONIDINE HCL 0.1 MG TABLET PO PRN (12:30)
[2019-04-27 12:47] VITALS: BP 153/81
--- NOTE | 2019-04-27 13:17 | NUR ---
.RN NOTES PATIENT DISCHARGE AT THIS TIME VIA HOSPITALIST Dr. AUGUSTE ORDERS GOING HOME WITH HOME HEALTH. SON WILL POKE IN.
--- NOTE | 2019-04-27 15:25 | NUR ---
LABOR ECONOMICS TEACHER NOTES PATIENT DISCHARGE AT THIS TIME GOING HOME WITH HOME HEALTH, PATIENT STABLE REFUSED PAIN, V/S WNL, MED COMPLAINT. MED RECONCILIATION AND DISCHARGE ORDER REVIEWED AND EXPLAINED TO THE PATIENT, AND SON NAME MOON. SON VERBALIZED UNDERSTANDING. BELONGING WITH THE PATIENT. PATIENT WILL FOLLOW PRIMARY MD, AND OUTPATIENT WOUND. PATIENT SIGN PAPERWORK. PRESCRIPTION ELECTRONICALLY DONE BY HOSPITALIST Dr AUGUSTE. PATIENT CODIFIER BY SON NAME MOON PHONE # [phone]. ESCORTED PATIENT TO THE LOBBY FOR SAFETY.
== END 2019-04-27 15:30 | disposition home health service (06) | DRG 981 ==
LOC: ER 12:54 → MED 16:20 → MEDSG2 04-25 03:18
PROVIDERS: ADMIT Internal Medicine; ATTEND Internal Medicine
PROC: 0LBW0ZZ Excision of Left Foot Tendon, Open Approach (ICD-10-PCS; principal; 2019-04-21)
PROC: 5A1D70Z Performance of Urinary Filtration, Intermittent, Less than 6 Hours Per Day (ICD-10-PCS; principal; 2019-04-21)
PROC: 03180ZD Bypass Left Brachial Artery to Upper Arm Vein, Open Approach (ICD-10-PCS; 2019-04-22)
PROC: 5A1D70Z Performance of Urinary Filtration, Intermittent, Less than 6 Hours Per Day (ICD-10-PCS; 2019-04-23)
PROC: 5A1D70Z Performance of Urinary Filtration, Intermittent, Less than 6 Hours Per Day (ICD-10-PCS; 2019-04-25)
PROC: 5A1D70Z Performance of Urinary Filtration, Intermittent, Less than 6 Hours Per Day (ICD-10-PCS; 2019-04-27)
DX: L03.116 Cellulitis of left lower limb (principal); N18.6 End stage renal disease; I12.0 Hypertensive chronic kidney disease with stage 5 chronic kidney disease or end stage renal disease; E44.0 Moderate protein-calorie malnutrition; E11.621 Type 2 diabetes mellitus with foot ulcer; L97.529 Non-pressure chronic ulcer of other part of left foot with unspecified severity; E11.22 Type 2 diabetes mellitus with diabetic chronic kidney disease; Z99.2 Dependence on renal dialysis; E11.51 Type 2 diabetes mellitus with diabetic peripheral angiopathy without gangrene; E11.65 Type 2 diabetes mellitus with hyperglycemia; D63.1 Anemia in chronic kidney disease; E78.5 Hyperlipidemia, unspecified; Z68.36 Body mass index [BMI] 36.0-36.9, adult; E11.40 Type 2 diabetes mellitus with diabetic neuropathy, unspecified; B35.1 Tinea unguium; Q78.9 Osteochondrodysplasia, unspecified; D72.829 Elevated white blood cell count, unspecified; Z88.0 Allergy status to penicillin
CPT/HCPCS: 36415; 71045-TC; 73630-TC; 80048-TC; 80076-TC; 80202-TC; 82962-TC; 83605-TC; 83735-TC; 84100-TC; 84484-TC; 85025-TC; 85652-TC; 85730-TC; 86850-TC; 87040-TC; 87070-TC; 87081-TC; 87186-TC; 90935-TC; 97112-TC; 97530-TC; A4216; A6248; C1769; G0378; J1100; J1644; J1815; J2185; J2250; J2270; J2405; J3370; J3490; J7030; J7040; J7050; J7060

== ENCOUNTER 2019-11-29 11:52 | Emergency (ER) | payer OTHER ==
[~2019-11-29] VITALS: Ht 157.5 cm; Wt 84.4 kg
[~2019-11-29 11:52] MED LIST changes: +METO25TA6 PO
[2019-11-29 12:40] LABS: BASOPHILS # (AUTO) 0.1 /CMM (0.0-0.2); BASOPHILS % (AUTO) 0.6 % (0.0-2.0); HEMATOCRIT 33 % (33-45); HEMOGLOBIN 10.6 g/dL (11.5-14.8); LYMPHOCYTES # (AUTO) 1.6 /CMM (0.8-4.8); LYMPHOCYTES % (AUTO) 15.5 % (20.0-44.0); MEAN CORPUSCULAR HGB CONC 32 g/dl (31.0-36.0); MEAN CORPUSCULAR VOLUME 103 fL (82-100); MONOCYTES % (AUTO) 9.3 % (2.0-12.0); NEUTROPHILS # (AUTO) 7.7 /CMM (1.8-8.9); NEUTROPHILS % (AUTO) 73.6 % (43.0-81.0); PLATELET COUNT (AUTO) 339 /CMM (150-450); RED BLOOD CELL COUNT(AUTO) 3.25 MIL/uL (4.0-5.2); WHITE BLOOD COUNT (AUTO) 10.4 K/uL (4.3-11.0)
--- NOTE | 2019-11-29 12:44 | NUR ---
bib son, ELIA pain x AM. ELIA fistula 05/14. PT AAOX4, VSS. RR EVEN & UNLABORED. DENIES CP, SOB, DIZZINESS, N/V AT THIS TIME. PT SEEN & EVAL'D BY DR. FERRARO. WILL CONT TO MONITOR.
[2019-11-29 12:46] LABS: CALCIUM, SERUM 8.7 mg/dL (8.5-10.1); CARBON DIOXIDE 28 mmol/L (21-32); CHLORIDE 99 mmol/L (98-107); GLUCOSE 163 mg/dL (74-106); POTASSIUM 4.2 mmol/L (3.5-5.1); SODIUM SERUM 138 mmol/L (136-145); UREA NITROGEN, BLOOD 29 mg/dL (7-18)
[2019-11-29] MEDS ORDERED: KETOROLAC TROMETHAMINE 15 MG/ML VIAL ONE (14:18)
[2019-11-29] MEDS ORDERED: KETOROLAC TROMETHAMINE INJ 30 MG/ML VIAL IV ONE (14:30)
--- NOTE | 2019-11-29 14:38 | NUR ---
Patient discharged to home in stable condition. Written and verbal after care instructions given. Patient verbalizes understanding of instruction. IV removed. Catheter intact and site benign. Pressure and 4x4 applied to site. No bleeding noted.
[2019-11-29 14:39] VITALS: BP 128/74
== END 2019-11-29 14:40 | disposition home or self-care (01) ==
LOC: ER 11:57
DX: M75.102 Unspecified rotator cuff tear or rupture of left shoulder, not specified as traumatic (principal); R07.89 Other chest pain; I12.0 Hypertensive chronic kidney disease with stage 5 chronic kidney disease or end stage renal disease; E10.22 Type 1 diabetes mellitus with diabetic chronic kidney disease; N18.6 End stage renal disease; E78.5 Hyperlipidemia, unspecified; Z99.2 Dependence on renal dialysis; Z88.0 Allergy status to penicillin; Z79.899 Other long term (current) drug therapy; Z79.4 Long term (current) use of insulin
CPT/HCPCS: 36415; 71045; 73030; 80048; 84484; 85025; 93005; 96374; 99285; J1885